=== PATIENT | male | born 1975 | race African-American/Black ===

== ENCOUNTER 2017-12-01 08:25 | Inpatient (IN) | payer OTHER ==
[2017-12-01 09:36] LABS: VENOUS PC02 38.4 mmHg (38-52); VENOUS PH 7.25 (7.32-7.42); VENOUS PO2 34.4 mmHg (28-48)
[2017-12-01 09:38] LABS: BASO % 0.8 % (0-2.0); EOS % 1.2 % (0-4.5); HEMATOCRIT 26.3 % (35.4-49); HEMOGLOBIN 8.1 GM/dL (11.7-16.9); LYMPH % 12.3 % (8-40); MCH 24.4 pg (25.7-33.7); MCHC 30.6 g/dl (32.0-35.9); MEAN CELL VOLUME 79.6 fl (80-96); MEAN PLT VOLUME 8.2 fl (7.5-11.1); MONO % 9.8 % (3.8-10.2); NEUT % 75.9 % (42.8-82.8); PLATELET COUNT 299 K/MM3 (134-434); RDW 21.7 % (11.9-15.9); WHITE BLOOD COUNT 9.1 K/mm3 (4.0-10.0)
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
[2017-12-01 10:00] LABS: INR 1.38 (0.82-1.09); PROTHROMBIN TIME (PATIENT) 15.6 SEC (9.98-11.88)
[2017-12-01 10:03] LABS: ACTIVATED PTT 32.6 SECONDS (26.9-34.4)
[2017-12-01 10:05] LABS: ADD RBC MORPHOLOGY YES
[2017-12-01] MEDS ORDERED: ONDANSETRON 4 MG/2 ML VIAL IVPUSH ONE (10:53)
[2017-12-01] MEDS ORDERED: ONDANSETRON 4 MG/2 ML VIAL ONE (11:06)
[2017-12-01] MEDS ORDERED: PIPERACILLIN/TAZOB 3.375 GM 50 ML IVPB ONE (11:17)
[2017-12-01] MEDS ORDERED: VANCOMYCIN 1,250 MG in DEXTROSE 5%-WATER - 250 ML IVPB ONE (11:17)
[2017-12-01 11:56] LABS: ANISOCYTOSIS 3+
[2017-12-01] MEDS ORDERED: PIPERACILLIN/TAZOB 3.375 GM 3.375 GM/50 ML BAG IVPB ONE (12:02)
--- NOTE | 2017-12-01 12:22 | PDOC ---
Attending Attestation - HPI HPI: 12/01/17 12:29 The patient is a 42 year old male, with a significant past medical history of asthma, ESRD on dialysis, and hypertension, who presents to the emergency room for evaluation of progressively worsening shortness of breath and a pre syncopal episode prior to arrival. The patient reports shortness of breath for approx. 3 days with today being the worst. Patient reports last dialysis was 2 days ago on Wednesday. Patient denies chest pain or palpitations. Patient denies recent fever, chills, nausea or vomiting. Documentation prepared by Anish العلي, acting as medical affairs manager for Krishan Liu MD. <Anish العلي - Last Filed: 12/01/17 12:29> - Resident Resident Name: London Marquez - ED Attending Attestation I have performed the following: I have examined & evaluated the patient, The case was reviewed & discussed with the resident, I agree w/resident's findings & plan, Exceptions are as noted - Physicial Exam PE: 12/01/17 14:46 Patient seen and evaluated immediately upon arrival; this history of present illness is being recorded prior to transfer to the ICU Patient is somnolent, easily arousable, abusive to staff, uncooperative; patient is afebrile, hypotensive and mildly tachycardic; nc, atr + jvd + diffuse crackles b/l + 3 pitting edema b/l w chronic venous stasis dermatitis b/l LUE: av fistula with pulsatile flow and several large pseudoaneurisms RUE: old, non-functional av fistula with several pseudoaneurisms - Critical Care Time Total Critical Care Time: 55 Critical Care Statement: The care of this patient involved high complexity decision making to prevent further life threatening deterioration of the patient 's condition and/or to evaluate & treat vital organ system(s) failure or risk of failure. - Medical Decision Making 12/01/17 14:54 Patient is an ill-appearing 42-year-old male with history of end-stage renal disease on hemodialysis who presents to the ER with somnolence, hypotension, diffuse crackles, and extensive lower extremity edema. Patient was last dialyzed 2 days prior to arrival. Patient also is noted to be hypotensive on room air requiring supplemental O2 at 4 L via nasal cannula to maintain oxygen saturation of 98% on room air. Physical exam reveals diffuse crackles bilaterally, and extensive lower extremity edema. EKG reveals atrial tachycardia with Q waves in V1 through V3; as well as mild, less than [address] segment elevations in V1 through V3 which may represent a ventricular aneurysm, hyperacute T waves are also noted in the lateral leads. Chest x-ray reveals cardiomegaly, pulmonary venous congestion with peribronchial cuffing, left retrocardiac infiltrate and interstitial edema. Blood cultures been obtained. IV vancomycin and gentamicin of been administered. Patient's potassium is noted to be 6.3. Dr. shaniqua rico of nephrology has been consulted for emergent dialysis. Patient will be admitted to the ICU further management and dialysis. On further questioning, patient reported that he had taken several tablets of hydralazine and labetalol shortly prior to arrival which may be responsible for patient's hypotension. Will defer pressor therapy at this time. Awaiting transfer to the ICU. <Krishan Liu - Last Filed: 12/01/17 15:00>
[2017-12-01 12:48] LABS: ALBUMIN 3.1 g/dl (3.4-5.0); ANION GAP 17 (8-16); BILIRUBIN,TOTAL 0.8 mg/dL (0.2-1.0); BLOOD UREA NITROGEN 81 mg/dL (7-18); CALCIUM 7.9 mg/dL (8.5-10.1); CHLORIDE 94 mmol/L (98-107); CO2 19 mmol/L (21-32); GLUCOSE,RANDOM 176 mg/dL (74-106); SGPT/ALT 31 U/L (12-78); SODIUM 130 mmol/L (136-145); TOT PROT 6.8 g/dl (6.4-8.2)
--- NOTE | 2017-12-01 13:15 | EKG ---
Test Reason : Blood Pressure : / mmHG Vent. 

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
[2017-12-01 13:31] LABS: ALK PHOS 311 U/L (45-117); SGOT/AST 20 U/L (15-37)
[2017-12-01 13:33] LABS: CREATININE 8.5 mg/dL (0.7-1.3); POTASSIUM 6.3 mmol/L (3.5-5.1)
--- NOTE | 2017-12-01 14:10 | HP ---
CHIEF COMPLAINT: shortness of breath, pre-syncope PCP: none HISTORY OF PRESENT ILLNESS: This is a 42 year old male with PMHx of HTN, ESRD (on HD, non-compliant), asthma , who presented to the ED with shortness of breath and pre-presyncope. The patient reports that he has had shortness of breath for several days now. He states it worsened today on his way to dialysis. His family reported that he was trying to get up today and fell back in his bed but did not lose consciousness. He denies any chest pain. His last HD was at [facility]. ER course was notable for: (1) temp 97.4, pulse 109, BP 70/46, resp 17, O2 93 on 2L nc (2) Hgb 8.1 hct 26.3 (3) Na 130, K 6.3, Cr 8.5 (4) Chest x-ray with dense, mass like opacity in the left lower lung, no pleural effusion or pneumothorax seen, vascular congestive changes with perironchial cuffing, cardiomegaly Recent Travel: denies PAST MEDICAL HISTORY: as above PAST SURGICAL HISTORY: denies Social History: Smoking: denies Alcohol: denies Drugs: denies Family History: Allergies morphine Allergy (Intermediate, Verified 12/01/17 08:46) HOME MEDICATIONS: Home Medications Medication Instructions Recorded Minoxidil [Loniten -] 10 mg PO DAILY 01/28/16 Oxycodone HCl/Acetaminophen 1 tab PO BID PRN #10 tablet 01/28/16 [Percocet 5-325 mg Tablet -] Sertraline HCl [Zoloft] 50 mg PO DAILY 01/28/16 Calcium Acetate [Phoslo -] 667 mg PO TIDCM 06/30/16 Sevelamer HCl [Renagel] 800 mg PO TID 06/30/16 Amlodipine Besylate [Norvasc -] 10 mg PO DAILY 08/16/16 Gabapentin 100 mg PO TID 08/16/16 Carvedilol [Coreg -] 12.5 mg PO BID #60 tablet 10/13/17 REVIEW OF SYSTEMS CONSTITUTIONAL: Absent: fever, chills, diaphoresis, generalized weakness, malaise, loss of appetite, weight change HEENT: Absent: rhinorrhea, nasal congestion, throat pain, throat swelling, difficulty swallowing, mouth swelling, ear pain, eye pain, visual changes CARDIOVASCULAR: Near syncope this morning. B/l lower extremity edema. Absent: chest pain, syncope, palpitations, irregular heart rate RESPIRATORY: Shortness of breath Absent: cough, orthopnea, wheezing, stridor, hemoptysis GASTROINTESTINAL: Absent: abdominal pain, abdominal distension, nausea, vomiting , diarrhea, constipation, melena, hematochezia GENITOURINARY: Absent: dysuria, frequency, urgency, hesitancy, hematuria, flank pain, genital pain MUSCULOSKELETAL: Absent: myalgia, arthralgia, joint swelling, back pain, neck pain SKIN: Absent: rash, itching, pallor HEMATOLOGIC/IMMUNOLOGIC: Absent: easy bleeding, easy bruising, lymphadenopathy, frequent infections ENDOCRINE:Absent: unexplained weight gain, unexplained weight loss, heat intolerance, cold intolerance NEUROLOGIC: Absent: headache, focal weakness or paresthesias, unsteady gait, seizure, mental status changes, bladder or bowel incontinence PSYCHIATRIC: Absent: anxiety, depression, suicidal or homicidal ideation, hallucinations. PHYSICAL EXAMINATION Vital Signs - 24 hr 12/01/17 12/01/17 12/01/17 08:25 08:47 09:25 Temperature 97.4 F L Pulse Rate 109 H Pulse Rate [ 94 H 93 H Left Radial] Respiratory 17 18 18 Rate Blood Pressure 70/46 Blood Pressure 80/54 104/76 [Right Arm] O2 Sat by Pulse 95 93 L 94 L Oximetry (%) 12/01/17 09:58 Temperature Pulse Rate Pulse Rate [ 93 H Left Radial] Respiratory 18 Rate Blood Pressure Blood Pressure 80/51 [Right Arm] O2 Sat by Pulse 94 L Oximetry (%) GENERAL: Awake, alert, and fully oriented, receiving HD HEAD: Normal with no signs of trauma. EYES: Refused EARS, NOSE, THROAT: Refused NECK: + JVD. LUNGS: Diffuse crackles bilaterally HEART: Regular rate and rhythm, normal S1 and S2 ABDOMEN: Soft, nontender, not distended, normoactive bowel sounds MUSCULOSKELETAL: Normal range of motion at all joints. No bony deformities or tenderness. No CVA tenderness. UPPER EXTREMITIES: LUE AV fistula currently being used for HD. RUE with old, non -functional AV fistula LOWER EXTREMITIES: B/l lower extremity 4+ pitting edema. B/l lower extremities with chronic venous stasis changes NEUROLOGICAL: Normal speech. Refused CN exam PSYCHIATRIC: Cooperative. Good eye contact. Appropriate mood and affect. Laboratory Results - last 24 hr 12/01/17 12/01/17 12/01/17 09:23 09:30 09:30 WBC 9.1 RBC 3.30 L Hgb 8.1 L Hct 26.3 L MCV 79.6 L MCH 24.4 L MCHC 30.6 L RDW 21.7 H D Plt Count 299 D MPV 8.2 Neutrophils % 75.9 Lymphocytes % 12.3 Monocytes % 9.8 Eosinophils % 1.2 Basophils % 0.8 Anisocytosis 3+ Microcytosis 2+ PT with INR 15.60 H INR 1.38 H PTT (Actin FS) 32.6 VBG pH 7.25 L POC VBG pCO2 38.4 POC VBG pO2 34.4 Mixed VBG HCO3 16.7 L Sodium Potassium Chloride Carbon Dioxide Anion Gap BUN Creatinine Creat Clearance w eGFR Random Glucose Calcium Total Bilirubin AST ALT Alkaline Phosphatase B-Natriuretic Peptide Total Protein Albumin 12/01/17 12/01/17 12/01/17 09:30 09:30 12:13 WBC RBC Hgb Hct MCV MCH MCHC RDW Plt Count MPV Neutrophils % Lymphocytes % Monocytes % Eosinophils % Basophils % Anisocytosis Microcytosis PT with INR INR PTT (Actin FS) VBG pH POC VBG pCO2 POC VBG pO2 Mixed VBG HCO3 Sodium Cancelled 130 L Potassium Cancelled 6.3 H* D Chloride Cancelled 94 L Carbon Dioxide Cancelled 19 L Anion Gap Cancelled 17 H BUN Cancelled 81 H D Creatinine Cancelled 8.5 H* D Creat Clearance w eGFR Cancelled 6.90 Random Glucose Cancelled 176 H Calcium Cancelled 7.9 L Total Bilirubin Cancelled 0.8 D AST Cancelled 20 ALT Cancelled 31 D Alkaline Phosphatase Cancelled 311 H D B-Natriuretic Peptide 10831.21 H Total Protein Cancelled 6.8 Albumin Cancelled 3.1 L Assessment: This is a 42 year old male with PMHx of HTN, ESRD (on HD, non- compliant), asthma, who presented to the ED with shortness of breath and pre- presyncope. Plan: 1) Shortness of breath, volume overload - Last HD on Wednesday - Elevated potassium - For urgent bedside HD today - Second HD session tomorrow - F/u ECHO - Appreciate nephrology consult 2) Hypotension - May be 2/2 taking extra antihypertensives today - Continue to monitor closely - Hold all antihypertensives - If no improvement, may require pressors 3) Hyperkalemia - Emergent HD today - EKG with atrial tachycardia - Per cardiology monitor on telemetry to see if arrhythmia resolves after HD treatment 4) Left lower lung mass like density - Was evident on previous chest x-ray 09/2017 - Given Vancomycin and Zosyn in the ED - No WBC, afebrile - F/u cultures - Will hold off on abx for now - F/u chest CT 5) HTN - Now with hypotension, hold antihypertensives 6) F/E/N: - Sodium controlled, renal diet - Monitor electrolytes 7) Prophylaxis: - Heparin 5,000u sq tid 8) Dispo: - Requires continued ICU care CODE STATUS: FULL CODE Visit type - Emergency Visit Emergency Visit: Yes ED Registration Date: 12/01/17 Care time: The patient presented to the Emergency Department on the above date and was hospitalized for further evaluation of their emergent condition. - New Patient This patient is new to me today: Yes Date on this admission: 12/01/17 - Critical Care Critical Care patient: Yes Total Critical Care Time (in minutes): 45 Critical Care Statement: The care of this patient involved high complexity decision making to prevent further life threatening deterioration of the patient 's condition and/or to evaluate & treat vital organ system(s) failure or risk of failure.
[2017-12-01 15:32] VITALS: BMI 35.5
--- NOTE | 2017-12-01 15:52 | CON.CARD ---
Consult Consult Specialty:: Cardiology Referred by:: brock Ornelas Reason for Consultation:: SOB/CHF - History of Present Illness Chief Complaint: SOB. near syncope History of Present Illness: 42 year old male with a pmhx of asthma, ESRD on HD, and htn presenting with sob and near syncope. Patient says today felt sob and weak which has been worsening last few days. Was trying to get up and fiance reports he fell back in bed due to weakness but did not lose consciousness. No chest pain. + chronic LE edema. Last dialysis 2 days ago but fiance reports he is not compliant. Denies any fever, chills, sweats. No palpitations. - History Source History Provided By: Patient, Family Member, Medical Record - Past Medical History Cardio/Vascular: Yes: HTN Pulmonary: Yes: Asthma Renal/: Yes: Renal Failure, Hemodialysis - Past Surgical History Past Surgical History: Yes: AV Fistula/Graft - Alcohol/Substance Use Hx Alcohol Use: No - Smoking History Smoking history: Current every day smoker Have you smoked in the past 12 months: Yes Aproximately how many cigarettes per day: 3 Home Medications - Allergies Allergies/Adverse Reactions: Allergies Allergy/AdvReac Type Severity Reaction Status Date / Time morphine Allergy Intermediate Verified 12/01/17 08:46 - Home Medications Home Medications: Ambulatory Orders Minoxidil [Loniten -] 10 mg PO DAILY 01/28/16 Oxycodone HCl/Acetaminophen [Percocet 5-325 mg Tablet -] 1 tab PO BID PRN #10 tablet 01/28/16 Sertraline HCl [Zoloft] 50 mg PO DAILY 01/28/16 Calcium Acetate [Phoslo -] 667 mg PO TIDCM 06/30/16 Sevelamer HCl [Renagel] 800 mg PO TID 06/30/16 Amlodipine Besylate [Norvasc -] 10 mg PO DAILY 08/16/16 Gabapentin 100 mg PO TID 08/16/16 Carvedilol [Coreg -] 12.5 mg PO BID #60 tablet 10/13/17 Vital Signs: Vital Signs Temperature 97.4 F L 12/01/17 15:08 Pulse Rate 101 H 12/01/17 15:08 Respiratory Rate 20 12/01/17 15:08 Blood Pressure 85/59 12/01/17 15:08 O2 Sat by Pulse Oximetry (%) 90 L 12/01/17 15:08 Constitutional: Yes: No Distress Respiratory: Yes: Rales Gastrointestinal: Yes: Soft Cardiovascular: Yes: Regular Rate and Rhythm JVD: Yes Carotid Bruit: No Heart Sounds: Yes: S1, S2 Murmur: Yes: Systolic Murmur (3/6 HSM apex) Edema: Yes - Other Data Labs, Other Data: CBC, BMP 12/01/17 09:30 12/01/17 12:13 INR, PTT INR 1.38 (0.82-1.09) H 12/01/17 09:30 Troponin, BNP 12/01/17 09:30 B-Natriuretic Peptide 20853.21 H Troponin, BNP 12/01/17 09:30 B-Natriuretic Peptide 27126.21 H Imaging - Results Chest X-ray: Report Reviewed EKG: Report Reviewed, Image Reviewed Assessment/Plan 42 year old male with a pmhx of asthma, ESRD on HD, and htn presenting with sob and near syncope. Patient says today felt sob and weak which has been worsening last few days. Was trying to get up and fiance reports he fell back in bed due to weakness but did not lose consciousness. No chest pain. + chronic LE edema. Last dialysis 2 days ago but fiance reports he is not compliant. Denies any fever, chills, sweats. No palpitations. 1) SOB/Volume overloaded Volume overloaded on physical exam and on chest xray with K 6.3. Planned for urgent dialysis -Would plan for echocardiogram to evaluate LVEF and valve anatomy -Patient with ekg: atrial tachycardia with 2:1 conduction HR 80s and poor R wave progression. No chest pain or palpitations. Will continue telemetry monitoring in ICU. Will see if arrhythmia resolves after treatment of electrolyte disorder. HR normal rate otherwise. R/o any infectious process. Will follow with you
[2017-12-01] MEDS: ALBUMIN HUMAN 25% 12.5 GM/50 ML VIAL IVPB SCH ×4 (16:15→18:22)
[2017-12-01] MEDS ORDERED: EPOETIN ALFA 3,000 UNIT/1 ML ML IVPUSH STA (18:14)
--- NOTE | 2017-12-01 20:28 | CONSULT ---
Consult Consult Specialty:: Pulm/ critical care Referred by:: Christi Goldstein - History of Present Illness Chief Complaint: shortness of breath, pre-syncope History of Present Illness: 42 year old man with h/o HTN, ESRD (non-compliant with HD), asthma who presented with SOB and pre-syncope. Per pts family he has had several days of worsening SOB and fatigue. His last HD was at [facility] on ? Wednesday/Wednesday. He complained of palpitations last night and took a few extra hydralizine and labetolol. He was supposed to go to HD today however he had pre- syncopal episode prompting family to bring him to ED. He denied fever, chills, chest pain, abdominal pain, nausea, vomiting or change in bowel habits. In the ED, T 97.4, HR 109, BP 70/46, RR 17, O2 93% on 2L NC. Labs were notable for K 6.3, Creat 8.5, Na 130. CXR notable for dense mass like opacity in left lower lung, vascular congestive changes. Impression was volume overload +/- PNA , though hypotension thought to be 2/2 excess antihypertensives. He was given vanco and zosyn x 1 in the ED and admitted to the ICU. He underwent bedside HD ( repeat chemistry pending) and underwent CT chest (report pending). Active Medications Calcium Acetate (Phoslo -) 667 mg PO TIDCM JUSTIN Gabapentin (Neurontin -) 100 mg PO TID JUSTIN Heparin Sodium (Porcine) (Heparin -) 5,000 unit SQ TID JUSTIN Sertraline HCl (Zoloft -) 50 mg PO DAILY JUSTIN Sevelamer Carbonate (Renvela -) 800 mg PO TIDCM JUSTIN - History Source History Provided By: Patient, Family Member, Medical Record - Past Medical History Cardio/Vascular: Yes: HTN Pulmonary: Yes: Asthma Renal/: Yes: Renal Failure, Hemodialysis - Past Surgical History Past Surgical History: Yes: AV Fistula/Graft - Alcohol/Substance Use Hx Alcohol Use: No - Smoking History Smoking history: Former smoker Have you smoked in the past 12 months: Yes Aproximately how many cigarettes per day: 4 - Social History Usual Living Arrangement: With Significant Other Home Medications - Allergies Allergies/Adverse Reactions: Allergies Allergy/AdvReac Type Severity Reaction Status Date / Time morphine Allergy Intermediate Verified 12/01/17 08:46 - Home Medications Home Medications: Ambulatory Orders Minoxidil [Loniten -] 10 mg PO DAILY 01/28/16 Oxycodone HCl/Acetaminophen [Percocet 5-325 mg Tablet -] 1 tab PO BID PRN #10 tablet 01/28/16 Sertraline HCl [Zoloft] 50 mg PO DAILY 01/28/16 Calcium Acetate [Phoslo -] 667 mg PO TIDCM 06/30/16 Sevelamer HCl [Renagel] 800 mg PO TID 06/30/16 Amlodipine Besylate [Norvasc -] 10 mg PO DAILY 08/16/16 Gabapentin 100 mg PO TID 08/16/16 Carvedilol [Coreg -] 12.5 mg PO BID #60 tablet 10/13/17 Review of Systems - Review of Systems Constitutional: reports: Weakness. denies: Chills, Fever Cardiovascular: reports: Palpitations, Shortness of Breath. denies: Chest Pain Respiratory: reports: Cough, SOB Gastrointestinal: denies: Abdominal Pain, Nausea Genitourinary: reports: No Symptoms Musculoskeletal: reports: Joint Pain Neurological: reports: Other (pre-syncope) Physical Exam Vital Signs: Vital Signs Temperature 98.7 F 12/01/17 15:40 Pulse Rate 108 H 12/01/17 19:30 Respiratory Rate 18 12/01/17 19:30 Blood Pressure 90/50 12/01/17 19:30 O2 Sat by Pulse Oximetry (%) 90 L 12/01/17 16:48 Eyes: Yes: WNL Cardiovascular: Yes: Tachycardia, S1, S2 Respiratory: Yes: CTA Bilaterally, Wheezes (mild wheeze) Gastrointestinal: Yes: Normal Bowel Sounds, Soft Extremities: Yes: Other (LUE fistula) Edema: Yes Edema: LLE: 2+, RLE: 2+ Peripheral Pulses WNL: Yes Wound/Incision: Yes: Other (b/l foot ulcers, wrapped) Labs: CBC, BMP 12/01/17 09:30 Imaging - Results Chest X-ray: Report Reviewed, Image Reviewed Cat Scan: Image Reviewed Assessment/Plan Assessment: 42 y/o man with HTN, ESRD (non-compliant with HD), asthma who presented to ED with shortness of breath and pre-syncope likely in the setting of volume overload and hypotension in setting of excess anti-hypertensives, differentials include pulmonic sepsis and PE. Renal: ESRD, presents with hyperkalemia and volume overload -s/p HD - continue TIW -f/u repeat chemistry Pulm: SOB likely in setting of volume overload though cannot r/o PNA - seems less likely given no leukocytosis or fevers - cannot r/o PE given pre-syncope, SOB and hypotension -O2 as needed -f/u CT chest official read -defer abx at this time - low threshold to re-dose if indicated -TTE - consider LE US CV: HTN at baseline presented with hypotension likely 2/2 excess antihypertensives -hemodynamic monitoring -hold antihypertensives -initiate pressors as needed -repeat EKG -TTE PPX: -SQ heparin -no indication for GI ppx DISPO: FULL CODE Jeannine Vences ACNP CCT: 35 mins
[2017-12-01] MEDS: HEPARIN NA (PORCINE) 5,000 UNITS/ML 1ML VIAL SQ SCH (21:46)
[2017-12-01] MEDS: SEVELAMER CARBONATE 800 MG TAB (FP) PO SCH (21:46)
[2017-12-01] MEDS: GABAPENTIN 100 MG CAPSULE (FP) PO SCH (21:47)
[2017-12-02 00:06] LABS: ANION GAP 12 (8-16); BLOOD UREA NITROGEN 32 mg/dL (7-18); CALCIUM 7.9 mg/dL (8.5-10.1); CHLORIDE 98 mmol/L (98-107); CO2 29 mmol/L (21-32); CREATININE 3.8 mg/dL (0.7-1.3); GLUCOSE,RANDOM 203 mg/dL (74-106); POTASSIUM 3.5 mmol/L (3.5-5.1); SODIUM 139 mmol/L (136-145)
[2017-12-02] MEDS ORDERED: oxyCODONE HCL 5 MG TABLET PO PRN ×2 (00:34→14:21)
[2017-12-02] MEDS: GABAPENTIN 100 MG CAPSULE (FP) PO SCH ×2 (05:48→14:04)
[2017-12-02] MEDS: HEPARIN NA (PORCINE) 5,000 UNITS/ML 1ML VIAL SQ SCH ×2 (05:48→14:04)
[2017-12-02 06:25] LABS: HEMATOCRIT 22.7 % (35.4-49); MCH 24.3 pg (25.7-33.7); MCHC 30.8 g/dl (32.0-35.9); MEAN CELL VOLUME 78.9 fl (80-96); PLATELET COUNT 279 K/MM3 (134-434); RBC 2.87 M/mm3 (4.00-5.60); RDW 21.1 % (11.9-15.9); WHITE BLOOD COUNT 7.2 K/mm3 (4.0-10.0)
--- NOTE | 2017-12-02 07:28 | PN ---
Progress Note, Physician Chief Complaint: SOB improving No chest pain or palpitations No dizziness or lightheadedness History of Present Illness: 42 year old male with a pmhx of asthma, ESRD on HD, and htn presenting with sob and near syncope. Patient says today felt sob and weak which has been worsening last few days. Was trying to get up and fiance reports he fell back in bed due to weakness but did not lose consciousness. No chest pain. + chronic LE edema. Last dialysis 2 days ago but fiance reports he is not compliant. Denies any fever, chills, sweats. No palpitations. - Current Medication List Current Medications: Active Medications Calcium Acetate (Phoslo -) 667 mg PO TIDCM [facility] Gabapentin (Neurontin -) 100 mg PO TID [facility] Last Admin: 12/02/17 05:48 Dose: 100 mg Heparin Sodium (Porcine) (Heparin -) 5,000 unit SQ TID [facility] Last Admin: 12/02/17 05:48 Dose: 5,000 unit Oxycodone HCl (Roxicodone -) 5 mg PO Q6H PRN PRN Reason: PAIN Sertraline HCl (Zoloft -) 50 mg PO DAILY [facility] Sevelamer Carbonate (Renvela -) 800 mg PO TIDCM [facility] Last Admin: 12/01/17 21:46 Dose: 800 mg - Objective Vital Signs: Vital Signs Temperature 98.2 F 12/02/17 06:00 Pulse Rate 114 H 12/02/17 06:00 Respiratory Rate 18 12/02/17 06:00 Blood Pressure 93/54 12/02/17 06:00 O2 Sat by Pulse Oximetry (%) 90 L 12/01/17 22:00 Constitutional: Yes: No Distress Neck: Yes: Supple Cardiovascular: Yes: Tachycardia, Murmur (2/6 HSM apex), S1, S2 Respiratory: Yes: Rales Gastrointestinal: Yes: Soft Edema: Yes Edema: LLE: 1+, RLE: 1+ Labs: CBC, BMP 12/02/17 05:10 12/01/17 19:30 INR, PTT INR 1.38 (0.82-1.09) H 12/01/17 09:30 Problem List - Problems (1) Fluid overload Code(s): E87.70 - FLUID OVERLOAD, UNSPECIFIED Qualifiers: Hypervolemia type: unspecified Qualified Code(s): E87.70 - Fluid overload, unspecified Assessment/Plan 42 year old male with a pmhx of asthma, ESRD on HD, and htn presenting with sob and near syncope. Patient says today felt sob and weak which has been worsening last few days. Was trying to get up and fiance reports he fell back in bed due to weakness but did not lose consciousness. No chest pain. + chronic LE edema. Last dialysis 2 days ago but fiance reports he is not compliant. Denies any fever, chills, sweats. No palpitations. 1) SOB/Volume overloaded -Volume status improving after dialysis but still overloaded. F/u with renal regarding plan for dialysis. K improved -Would plan for echocardiogram to evaluate LVEF and valve anatomy and pulmonary htn. -Patient with ekg: atrial tachycardia vs. atrial flutter with 2:1 conduction. HR in 80s on admission. On tele up to 110s. No chest pain or palpitations. Will continue telemetry monitoring in ICU. Consider blood transfusion during dialysis. BP meds on hold. If bp improves/elevates senior living would start on AV lexus blocking agent. HR 100-110 unlikely to be causing hypotension. Will monitor arrhythmia and hemodynamics for any need for further cardiac intervention. R/o any infectious process. Will follow with you
--- NOTE | 2017-12-02 08:55 | PN ---
Physical Exam: SUBJECTIVE: Patient seen and examined in ICU. Demanding a regular diet. "I am a grown man. No one tells me what to eat." OBJECTIVE: Vital Signs Period Temp Pulse Resp BP Sys/Mcintyre Pulse Ox Last 24 Hr 97.4 F-98.7 F 93-116 16-20 78-111/40-83 90-94 GENERAL: The patient is awake, alert, and fully oriented, in no acute distress. NECK: Trachea midline, full range of motion, supple. LUNGS: Diffuse wheezes, coarse crackles to left base, no accessory muscle use. HEART: Tele with ST. S1, S2 without murmur, rub or gallop. ABDOMEN: Soft, nontender, nondistended, normoactive bowel sounds, no guarding, no rebound, no hepatosplenomegaly, no masses. EXTREMITIES: 2+ pulses, warm, well-perfused, 4+ edema to bilateral LE. No cords present. 2+DP pulses. Chronic venous stasis changes to BLE. LUE A-V fistula (+) bruit. (+) thrill. NEUROLOGICAL: Cranial nerves II through XII grossly intact. Normal speech, gait not observed. PSYCH: Normal mood, normal affect. Laboratory Results - last 24 hr 12/01/17 12/01/17 12/01/17 09:23 09:30 09:30 WBC 9.1 RBC 3.30 L Hgb 8.1 L Hct 26.3 L MCV 79.6 L MCH 24.4 L MCHC 30.6 L RDW 21.7 H D Plt Count 299 D MPV 8.2 Neutrophils % 75.9 Lymphocytes % 12.3 Monocytes % 9.8 Eosinophils % 1.2 Basophils % 0.8 Anisocytosis 3+ Microcytosis 2+ PT with INR 15.60 H INR 1.38 H PTT (Actin FS) 32.6 VBG pH 7.25 L POC VBG pCO2 38.4 POC VBG pO2 34.4 Mixed VBG HCO3 16.7 L Sodium Potassium Chloride Carbon Dioxide Anion Gap BUN Creatinine Creat Clearance w eGFR Random Glucose Calcium Total Bilirubin AST ALT Alkaline Phosphatase B-Natriuretic Peptide Total Protein Albumin 12/01/17 12/01/17 12/01/17 09:30 09:30 12:13 WBC RBC Hgb Hct MCV MCH MCHC RDW Plt Count MPV Neutrophils % Lymphocytes % Monocytes % Eosinophils % Basophils % Anisocytosis Microcytosis PT with INR INR PTT (Actin FS) VBG pH POC VBG pCO2 POC VBG pO2 Mixed VBG HCO3 Sodium Cancelled 130 L Potassium Cancelled 6.3 H* D Chloride Cancelled 94 L Carbon Dioxide Cancelled 19 L Anion Gap Cancelled 17 H BUN Cancelled 81 H D Creatinine Cancelled 8.5 H* D Creat Clearance w eGFR Cancelled 6.90 Random Glucose Cancelled 176 H Calcium Cancelled 7.9 L Total Bilirubin Cancelled 0.8 D AST Cancelled 20 ALT Cancelled 31 D Alkaline Phosphatase Cancelled 311 H D B-Natriuretic Peptide 72256.21 H Total Protein Cancelled 6.8 Albumin Cancelled 3.1 L 12/01/17 12/02/17 19:30 05:10 WBC 7.2 RBC 2.87 L Hgb 7.0 L D Hct 22.7 L MCV 78.9 L MCH 24.3 L MCHC 30.8 L RDW 21.1 H Plt Count 279 MPV 8.0 Neutrophils % Lymphocytes % Monocytes % Eosinophils % Basophils % Anisocytosis Microcytosis PT with INR INR PTT (Actin FS) VBG pH POC VBG pCO2 POC VBG pO2 Mixed VBG HCO3 Sodium 139 Potassium 3.5 D Chloride 98 Carbon Dioxide 29 D Anion Gap 12 BUN 32 H D Creatinine 3.8 H D Creat Clearance w eGFR Random Glucose 203 H Calcium 7.9 L Total Bilirubin AST ALT Alkaline Phosphatase B-Natriuretic Peptide Total Protein Albumin Active Medications Generic Name Dose Route Start Last Admin Trade Name Freq PRN Reason Stop Dose Admin Calcium Acetate 667 mg 12/02/17 08:00 Phoslo - PO TIDCM JUSTIN Gabapentin 100 mg 12/01/17 22:00 12/02/17 05:48 Neurontin - PO 100 mg TID JUSTIN Administration Heparin Sodium (Porcine) 5,000 unit 12/01/17 22:00 12/02/17 05:48 Heparin - SQ 5,000 unit TID JUSTIN Administration Oxycodone HCl 5 mg 12/02/17 00:34 Roxicodone - PO Q6H PRN PAIN Sertraline HCl 50 mg 12/02/17 10:00 Zoloft - PO DAILY JUSTIN Sevelamer Carbonate 800 mg 12/01/17 20:00 12/01/17 21:46 Renvela - PO 800 mg TIDCM JUSTIN Administration CT/CHEST CT WITHOUT CONTRAST Chest CT (without contrast) Clinical information: evaluate left lung base density Multiplanar imaging was performed. Intravenous contrast was not administered. In comparison to a prior CT study of 01/06/2007 note is made of interval development of approximately 10 x 8 x 3 cm heavily calcified structure within the serratus musculature along the posterolateral aspect of the mid to lower chest. This finding corresponds to the area of increased density described on recently performed radiography. Interval development of diffuse bilateral upper and lower lung ponce ground glass interstitial opacity is seen. There is somewhat preferential involvement of the upper lung ponce. Development of small right middle lobe and left lower lobe focal opacities is seen probably representing atelectasis versus small infiltrates. There has been interval resolution of more bilateral upper lobe infiltrates/nodules. No pleural effusion is seen. Increased multichamber cardiomegaly is visualized. Interval development of extensive mitral annular calcification is noted. Less prominent calcification is seen at the level of the aortic valve. Increased dilatation of the main pulmonary artery is noted with a current diameter of 3.5 cm consistent with evidence of increased pulmonary arterial pressure. Development of dilatation of the partially imaged inferior vena cava and hepatic veins is seen secondary to cardiac dysfunction. The partially imaged upper abdomen demonstrates bilateral flank subcutaneous edema. The partially imaged kidneys demonstrate interval development of marked bilateral atrophy. No pericardial effusion is noted. There is no aortic aneurysm. Development of several punctate preaortic mediastinal lymph nodes is seen probably on a hyperplastic basis. As on the prior study several stable mildly prominent bilateral axillary lymph nodes are noted. Bilateral subcentimeter upper lung field subpleural blebs. Development of diffuse osteosclerosis is noted suggestive of renal osteodystrophy. IMPRESSION: in comparison to a prior CT study of 01/06/2007 interval development of a 10 x 8 x 3 cm hyperdense focus is seen within the extrathoracic muscular along the left posterolateral aspect of the mid chest suggestive of heterotopic ossification. No obvious associated mass lesion is identified. Correlate with follow-up CT to document stability. This finding corresponds to the area of increased density described on recent performed radiography. Interval development of diffuse bilateral upper and lower lung field ground glass interstitial thickening is seen which may be on the basis of vascular congestion versus interstitial pneumonitis. Increased global cardiomegaly is noted. There is increased dilatation of the central pulmonary arterial vasculature consistent with pulmonary hypertension. Marked bilateral renal atrophy is seen. Bilateral flank subcutaneous edema at the level of the partially imaged upper abdomen. Interval development of small right middle lobe and left lower lobe opacities are noted probably on the basis of acute/chronic atelectasis (versus representing small infiltrates). Small pulmonary nodules are less likely. Correlate clinically and with 3 month follow-up CT to document stability/ resolution. Renal osteodystrophy. Reported By: Seferino Padron MD 12/01/17 [id number] ASSESSMENT/PLAN: A: 42 year old male with PMHx of HTN, ESRD (on HD, non-compliant), asthma, who presented to the ED with shortness of breath and pre-syncope. P: Shortness of breath, volume overload - Emergent HD 12/01 - Potassium 3.5 s/p HD - ?HD session today- will transfuse if he receives HD today - F/u ECHO - duplex dopplers of BLE - Appreciate nephrology consult Hypotension - ?took extra HTN medds prior to admission - Continue to monitor closely - Hold all antihypertensives - If no improvement, may require pressors Hyperkalemia - Resolved - Emergent HD 12/01 - EKG with atrial tachycardia - Per cardiology monitor on telemetry to see if arrhythmia resolves after HD treatment Anemia - Hgb 8.1->7.0 s/p HD - No hematemesis - denies rectal bleeding - refused rectal exam - would transfuse if HD today given diffuse wheezes Left lower lung mass like density - Was evident on previous chest x-ray 09/2017 - Given Vancomycin and Zosyn in the ED - No WBC, afebrile - F/u cultures - Continue to hold abx for now HTN - Now with hypotension, hold antihypertensives F/E/N - Sodium controlled, renal diet - trend electrolytes PPX - sqh Dispo- Requires continued ICU care Visit type - Emergency Visit Emergency Visit: Yes ED Registration Date: 12/01/17 Care time: The patient presented to the Emergency Department on the above date and was hospitalized for further evaluation of their emergent condition. - New Patient This patient is new to me today: Yes Date on this admission: 12/02/17 - Critical Care Critical Care patient: Yes Total Critical Care Time (in minutes): 34 Critical Care Statement: The care of this patient involved high complexity decision making to prevent further life threatening deterioration of the patient 's condition and/or to evaluate & treat vital organ system(s) failure or risk of failure.
[2017-12-02] MEDS ORDERED: SERTRALINE HCL 50 MG TABLET (FP) PO SCH (10:00)
[2017-12-02] MEDS: CALCIUM ACETATE 667 MG CAPSULE (FP) PO SCH ×3 (10:17→17:41)
[2017-12-02] MEDS: SEVELAMER CARBONATE 800 MG TAB (FP) PO SCH ×3 (10:18→17:41)
[2017-12-02 11:07] LABS: ANION GAP 11 (8-16); BLOOD UREA NITROGEN 46 mg/dL (7-18); CHLORIDE 98 mmol/L (98-107); CO2 27 mmol/L (21-32); CREATININE 6.2 mg/dL (0.7-1.3); GLUCOSE,RANDOM 185 mg/dL (74-106); MAGNESIUM 2.2 mg/dL (1.8-2.4); PHOSPHOROUS 5.4 mg/dL (2.5-4.9); POTASSIUM 4.3 mmol/L (3.5-5.1); SGOT/AST 14 U/L (15-37); SGPT/ALT 27 U/L (12-78); SODIUM 136 mmol/L (136-145)
[2017-12-02 11:09] LABS: ALK PHOS 273 U/L (45-117); BILIRUBIN,TOTAL 0.6 mg/dL (0.2-1.0); TOT PROT 6.5 g/dl (6.4-8.2)
--- NOTE | 2017-12-02 11:38 | PN ---
Physical Exam: SUBJECTIVE: Patient seen and examined in ICU Patient underwent hemodialysis yesterday and tolerated well. Shortness of breath is improving. Patient denies any complaints this morning. OBJECTIVE: Vital Signs Period Temp Pulse Resp BP Sys/Mcintyre Pulse Ox Last 24 Hr 97.4 F-98.7 F 97-117 16-20 78-111/40-83 90-98 GENERAL: The patient is awake, alert, and fully oriented, in no acute distress. HEAD: Normal with no signs of trauma. EYES: Extraocular movements intact, sclera anicteric, conjunctiva clear. No ptosis. ENT: Oropharynx clear without exudates, moist mucous membranes. NECK: Trachea midline, full range of motion, supple. LUNGS: Breath sounds equal, +Rhonchi at biltaeral bases, no accessory muscle use HEART: Tachycardic, S1, S2 without murmur, rub or gallop. ABDOMEN: Soft, nontender, nondistended, normoactive bowel sounds, no guarding, no rebound, no hepatosplenomegaly, no masses. EXTREMITIES: 2+ pulses, warm, well-perfused, no edema. NEUROLOGICAL: Cranial nerves II through XII grossly intact. Normal speech, gait not observed. PSYCH: Normal mood, normal affect. SKIN: Warm, dry, normal turgor, no rashes or lesions noted Laboratory Results - last 24 hr 12/01/17 12/01/17 12/01/17 09:30 12:13 19:30 WBC RBC Hgb Hct MCV MCH MCHC RDW Plt Count MPV Anisocytosis 3+ Microcytosis 2+ Sodium 130 L 139 Potassium 6.3 H* D 3.5 D Chloride 94 L 98 Carbon Dioxide 19 L 29 D Anion Gap 17 H 12 BUN 81 H D 32 H D Creatinine 8.5 H* D 3.8 H D Creat Clearance w eGFR 6.90 Random Glucose 176 H 203 H Calcium 7.9 L 7.9 L Total Bilirubin 0.8 D AST 20 ALT 31 D Alkaline Phosphatase 311 H D Total Protein 6.8 Albumin 3.1 L Blood Type Antibody Screen Crossmatch 12/02/17 12/02/17 05:10 10:10 WBC 7.2 RBC 2.87 L Hgb 7.0 L D Hct 22.7 L MCV 78.9 L MCH 24.3 L MCHC 30.8 L RDW 21.1 H Plt Count 279 MPV 8.0 Anisocytosis Microcytosis Sodium Potassium Chloride Carbon Dioxide Anion Gap BUN Creatinine Creat Clearance w eGFR Random Glucose Calcium Total Bilirubin AST ALT Alkaline Phosphatase Total Protein Albumin Blood Type A POSITIVE Antibody Screen Negative Crossmatch See Detail Active Medications Generic Name Dose Route Start Last Admin Trade Name Freq PRN Reason Stop Dose Admin Calcium Acetate 667 mg 12/02/17 08:00 12/02/17 10:17 Phoslo - PO 667 mg TIDCM [facility] Administration Gabapentin 100 mg 12/01/17 22:00 12/02/17 05:48 Neurontin - PO 100 mg TID [facility] Administration Heparin Sodium (Porcine) 5,000 unit 12/01/17 22:00 12/02/17 05:48 Heparin - SQ 5,000 unit TID [facility] Administration Oxycodone HCl 5 mg 12/02/17 00:34 Roxicodone - PO Q6H PRN PAIN Sertraline HCl 50 mg 12/02/17 10:00 12/02/17 10:18 Zoloft - PO 50 mg DAILY [facility] Administration Sevelamer Carbonate 800 mg 12/01/17 20:00 12/02/17 10:18 Renvela - PO 800 mg TIDCM [facility] Administration ASSESSMENT/PLAN: 42 y/o man with HTN, ESRD (non-compliant with HD), asthma who presented to ED with shortness of breath and pre-syncope likely in the setting of volume overload and hypotension in setting of excess anti-hypertensives Renal: ESRD, presented with hyperkalemia and volume overload -Patient tolerated HD yesterday. Will f/u with renal if patient will go to HD today. Patient's hgb dropped to 7, will give 1 unit prbc with dialysis -Monitor BMP's -Monitor H/H Pulmonary: SOB 2/2 to volume overload though cannot r/o PNA -O2 as needed -No Leukocytosis, no fevers -Repeat CXR later today CV: HTN at baseline presented with hypotension likely 2/2 excess antihypertensives -hemodynamic monitoring -hold antihypertensives -initiate pressors as needed PPX: -SQ heparin -no indication for GI ppx DISPO: Transfer to med/surg Visit type - Emergency Visit Emergency Visit: Yes ED Registration Date: 12/01/17 Care time: The patient presented to the Emergency Department on the above date and was hospitalized for further evaluation of their emergent condition. - New Patient This patient is new to me today: Yes Date on this admission: 12/02/17 - Critical Care Critical Care patient: Yes Total Critical Care Time (in minutes): 35 Critical Care Statement: The care of this patient involved high complexity decision making to prevent further life threatening deterioration of the patient 's condition and/or to evaluate & treat vital organ system(s) failure or risk of failure.
--- NOTE | 2017-12-02 11:58 | PN ---
Teaching Attending Note Name of Resident: Dejuan Sanchez ATTENDING PHYSICIAN STATEMENT I saw and evaluated the patient. I reviewed the resident's note and discussed the case with the resident. I agree with the resident's findings and plan as documented. SUBJECTIVE: Pt seen and examined in the ICU. Tolerated HD yesterday. Some shortness of breath but improving with HD. OBJECTIVE: Last Vital Signs Temp Pulse Resp BP Pulse Ox 98.5 F 114 H 18 85/45 98 12/02/17 10:00 12/02/17 10:00 12/02/17 10:00 12/02/17 10:00 12/02/17 09:00 Intake & Output 11/29/17 11/30/17 12/01/17 12/02/17 23:59 23:59 23:59 23:59 Intake Total 400 Balance 400 Weight 85.275 kg 83.716 kg Gen: NAD at rest Heart: tachycardic, regular Lung: basilar rhonchi, rales Abd: soft, nontender Ext: no edema CBC, BMP 12/02/17 05:10 12/02/17 10:10 Active Medications Calcium Acetate (Phoslo -) 667 mg PO TIDCM [facility] Last Admin: 12/02/17 10:17 Dose: 667 mg Gabapentin (Neurontin -) 100 mg PO TID [facility] Last Admin: 12/02/17 05:48 Dose: 100 mg Heparin Sodium (Porcine) (Heparin -) 5,000 unit SQ TID [facility] Last Admin: 12/02/17 05:48 Dose: 5,000 unit Oxycodone HCl (Roxicodone -) 5 mg PO Q6H PRN PRN Reason: PAIN Sertraline HCl (Zoloft -) 50 mg PO DAILY [facility] Last Admin: 12/02/17 10:18 Dose: 50 mg Sevelamer Carbonate (Renvela -) 800 mg PO TIDCM [facility] Last Admin: 12/02/17 10:18 Dose: 800 mg ASSESSMENT AND PLAN: Volume Overload ESRD on HD Hyperkalemia improved after HD Noncompliance HTN Asthma - HD per renal with ultrafiltration - transfuse with HD - monitor lytes - monitor CXR with HD - monitor H/H - DVT prophylaxis - can monitor on floor
[2017-12-02] MEDS ORDERED: EPOETIN ALFA 2,000 UNIT/1 ML VIAL IVPUSH ONE ×2 (12:53→17:00)
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
[2017-12-02] MEDS ORDERED: EPOETIN ALFA 3,000 UNIT/1 ML ML IVPUSH ONE (17:00)
[2017-12-03] MEDS: GABAPENTIN 100 MG CAPSULE (FP) PO SCH ×4 (05:08→21:43)
[2017-12-03] MEDS: HEPARIN NA (PORCINE) 5,000 UNITS/ML 1ML VIAL SQ SCH ×3 (05:08→14:09)
[2017-12-03 06:06] LABS: HBSAG SCREEN Negative (Negative); HEP B CORE AB, TOT Negative (Negative)
[2017-12-03 07:00] LABS: HEMATOCRIT 29.3 % (35.4-49); HEMOGLOBIN 9.2 GM/dL (11.7-16.9); MCH 25.6 pg (25.7-33.7); MCHC 31.4 g/dl (32.0-35.9); MEAN CELL VOLUME 81.7 fl (80-96); MEAN PLT VOLUME 8.1 fl (7.5-11.1); PLATELET COUNT 314 K/MM3 (134-434); RBC 3.58 M/mm3 (4.00-5.60); RDW 21.6 % (11.9-15.9); WHITE BLOOD COUNT 8.4 K/mm3 (4.0-10.0)
[2017-12-03 07:05] LABS: CHLORIDE 95 mmol/L (98-107); POTASSIUM 4.6 mmol/L (3.5-5.1); SODIUM 137 mmol/L (136-145)
[2017-12-03 07:15] LABS: ALBUMIN 3.1 g/dl (3.4-5.0); ALK PHOS 288 U/L (45-117); ANION GAP 14 (8-16); BILIRUBIN,TOTAL 0.9 mg/dL (0.2-1.0); BLOOD UREA NITROGEN 31 mg/dL (7-18); CALCIUM 8.5 mg/dL (8.5-10.1); CO2 28 mmol/L (21-32); CREATININE 5.2 mg/dL (0.7-1.3); GLUCOSE,RANDOM 120 mg/dL (74-106); MAGNESIUM 2.1 mg/dL (1.8-2.4); PHOSPHOROUS 4.7 mg/dL (2.5-4.9); SGOT/AST 16 U/L (15-37); SGPT/ALT 25 U/L (12-78)
[2017-12-03] MEDS: CALCIUM ACETATE 667 MG CAPSULE (FP) PO SCH ×3 (08:15→17:09)
[2017-12-03] MEDS: SEVELAMER CARBONATE 800 MG TAB (FP) PO SCH ×3 (08:15→17:08)
[2017-12-03] MEDS: SERTRALINE HCL 50 MG TABLET (FP) PO SCH (09:57)
--- NOTE | 2017-12-03 10:58 | PN ---
Teaching Attending Note Name of Resident: Dejuan Sanchez ATTENDING PHYSICIAN STATEMENT I saw and evaluated the patient. I reviewed the resident's note and discussed the case with the resident. I agree with the resident's findings and plan as documented. SUBJECTIVE: Patient seen and examined in the ICU. Breathing feels slightly better today. Not adherent to diet, fluid restriction. No CP. CXR: Bilateral congestive changes OBJECTIVE: Intake & Output 11/30/17 12/01/17 12/02/17 12/03/17 23:59 23:59 23:59 23:59 Intake Total 1200 900 Balance 1200 900 Weight 188 lb 184 lb 9 oz Last Vital Signs Temp Pulse Resp BP Pulse Ox 99.4 F 122 H 22 139/83 98 12/03/17 08:25 12/03/17 10:47 12/03/17 10:47 12/03/17 10:47 12/02/17 09:00 Active Medications Calcium Acetate (Phoslo -) 667 mg PO TIDCM [facility] Last Admin: 12/03/17 08:15 Dose: 667 mg Diphenhydramine HCl (Benadryl Injection -) 25 mg IVPUSH ONCE ONE Stop: 12/03/17 11:01 Gabapentin (Neurontin -) 100 mg PO TID [facility] Last Admin: 12/03/17 05:34 Dose: 100 mg Heparin Sodium (Porcine) (Heparin -) 5,000 unit SQ TID [facility] Last Admin: 12/03/17 05:35 Dose: 5,000 unit Oxycodone HCl (Roxicodone -) 5 mg PO Q6H PRN PRN Reason: PAIN Sertraline HCl (Zoloft -) 50 mg PO DAILY [facility] Last Admin: 12/03/17 09:57 Dose: 50 mg Sevelamer Carbonate (Renvela -) 800 mg PO TIDCM [facility] Last Admin: 12/03/17 08:15 Dose: 800 mg Gen: NAD at rest Heart: tachycardic, regular Lung: basilar rhonchi, rales Abd: soft, nontender Ext: no edema Laboratory Results - last 24 hr 12/01/17 12/01/17 12/02/17 19:30 19:30 10:10 WBC RBC Hgb Hct MCV MCH MCHC RDW Plt Count MPV Sodium Potassium Chloride Carbon Dioxide Anion Gap BUN Creatinine Creat Clearance w eGFR Random Glucose Calcium Phosphorus Magnesium Total Bilirubin AST ALT Alkaline Phosphatase Total Protein Albumin Hepatitis A Ab Total Negative Hep Bs Antigen Negative Hep Bs Antibody Non reactive Hep B Core Total Ab Negative Hepatitis C Antibody Cancelled <0.1 Blood Type A POSITIVE Antibody Screen Negative Crossmatch See Detail 12/02/17 12/03/17 12/03/17 10:10 06:10 06:10 WBC 8.4 RBC 3.58 L D Hgb 9.2 L D Hct 29.3 L D MCV 81.7 MCH 25.6 L MCHC 31.4 L RDW 21.6 H Plt Count 314 MPV 8.1 Sodium 136 137 Potassium 4.3 D 4.6 Chloride 98 95 L Carbon Dioxide 27 28 Anion Gap 11 14 BUN 46 H D 31 H D Creatinine 6.2 H D 5.2 H Creat Clearance w eGFR 9.93 12.17 Random Glucose 185 H 120 H D Calcium 8.0 L 8.5 Phosphorus 5.4 H D 4.7 Magnesium 2.2 2.1 Total Bilirubin 0.6 D 0.9 D AST 14 L D 16 ALT 27 25 Alkaline Phosphatase 273 H 288 H Total Protein 6.5 7.0 Albumin 3.0 L 3.1 L Hepatitis A Ab Total Hep Bs Antigen Hep Bs Antibody Hep B Core Total Ab Hepatitis C Antibody Blood Type Antibody Screen Crossmatch ASSESSMENT AND PLAN: Volume Overload ESRD on HD Hyperkalemia improved after HD Noncompliance HTN Asthma - HD per renal with volume removal - Normal transfusion thresholds - monitor lytes - monitor H/H - DVT prophylaxis - Floor - Daily weight - Dietary compliance discussed Dr Mcmillan Critical care time spent in reviewing chart, evaluating patient and formulating plan - 36 minutes.
--- NOTE | 2017-12-03 11:03 | PN ---
Physical Exam: SUBJECTIVE: Patient seen and examined Patient underwent hemodialysis yesterday and tolerated well. Shortness of breath is improving. Patient denies any complaints this morning other than he is worried about his heart. OBJECTIVE: Vital Signs Period Temp Pulse Resp BP Sys/Mcintyre Pulse Ox Last 24 Hr 98.4 F-99.4 F 82-127 16-22 85-139/45-83 GENERAL: The patient is awake, alert, and fully oriented, in no acute distress. HEAD: Normal with no signs of trauma. EYES: Extraocular movements intact, sclera anicteric, conjunctiva clear. No ptosis. ENT: Oropharynx clear without exudates, moist mucous membranes. NECK: Trachea midline, full range of motion, supple. LUNGS: Breath sounds equal, +Rhonchi at biltaeral bases, no accessory muscle use HEART: Tachycardic, S1, S2 without murmur, rub or gallop. ABDOMEN: Soft, nontender, nondistended, normoactive bowel sounds, no guarding, no rebound, no hepatosplenomegaly, no masses. EXTREMITIES: 2+ pulses, warm, well-perfused, no edema. NEUROLOGICAL: Cranial nerves II through XII grossly intact. Normal speech, gait not observed. PSYCH: Normal mood, normal affect. SKIN: Warm, dry, normal turgor, no rashes or lesions noted Laboratory Results - last 24 hr 12/01/17 12/01/17 12/02/17 19:30 19:30 10:10 WBC RBC Hgb Hct MCV MCH MCHC RDW Plt Count MPV Sodium Potassium Chloride Carbon Dioxide Anion Gap BUN Creatinine Creat Clearance w eGFR Random Glucose Calcium Phosphorus Magnesium Total Bilirubin AST ALT Alkaline Phosphatase Total Protein Albumin Hepatitis A Ab Total Negative Hep Bs Antigen Negative Hep Bs Antibody Non reactive Hep B Core Total Ab Negative Hepatitis C Antibody Cancelled <0.1 Blood Type A POSITIVE Antibody Screen Negative Crossmatch See Detail 12/02/17 12/03/17 12/03/17 10:10 06:10 06:10 WBC 8.4 RBC 3.58 L D Hgb 9.2 L D Hct 29.3 L D MCV 81.7 MCH 25.6 L MCHC 31.4 L RDW 21.6 H Plt Count 314 MPV 8.1 Sodium 136 137 Potassium 4.3 D 4.6 Chloride 98 95 L Carbon Dioxide 27 28 Anion Gap 11 14 BUN 46 H D 31 H D Creatinine 6.2 H D 5.2 H Creat Clearance w eGFR 9.93 12.17 Random Glucose 185 H 120 H D Calcium 8.0 L 8.5 Phosphorus 5.4 H D 4.7 Magnesium 2.2 2.1 Total Bilirubin 0.6 D 0.9 D AST 14 L D 16 ALT 27 25 Alkaline Phosphatase 273 H 288 H Total Protein 6.5 7.0 Albumin 3.0 L 3.1 L Hepatitis A Ab Total Hep Bs Antigen Hep Bs Antibody Hep B Core Total Ab Hepatitis C Antibody Blood Type Antibody Screen Crossmatch Active Medications Generic Name Dose Route Start Last Admin Trade Name Freq PRN Reason Stop Dose Admin Calcium Acetate 667 mg 12/02/17 17:30 12/03/17 08:15 Phoslo - PO 667 mg TIDCM [facility] Administration Diphenhydramine HCl 25 mg 12/03/17 11:00 12/03/17 10:57 Benadryl Injection - IVPUSH 12/03/17 11:01 25 mg ONCE ONE Administration Gabapentin 100 mg 12/02/17 22:00 12/03/17 05:34 Neurontin - PO 100 mg TID [facility] Administration Heparin Sodium (Porcine) 5,000 unit 12/02/17 22:00 12/03/17 05:35 Heparin - SQ 5,000 unit TID [facility] Administration Oxycodone HCl 5 mg 12/02/17 14:21 Roxicodone - PO Q6H PRN PAIN Sertraline HCl 50 mg 12/03/17 10:00 12/03/17 09:57 Zoloft - PO 50 mg DAILY [facility] Administration Sevelamer Carbonate 800 mg 12/02/17 17:30 12/03/17 08:15 Renvela - PO 800 mg TIDCM [facility] Administration ASSESSMENT/PLAN: 42 y/o man with HTN, ESRD (non-compliant with HD), asthma who presented to ED with shortness of breath and pre-syncope likely in the setting of volume overload and hypotension in setting of excess anti-hypertensives Renal: ESRD, presented with hyperkalemia and volume overload -Patient tolerated HD yesterday. Continue Dialysis per Renal. Dr. Rodriguez on the case -Monitor BMP's -Monitor H/H, transfuse below 7 Pulmonary: SOB 2/2 to volume overload though cannot r/o PNA -O2 as needed -No Leukocytosis, no fevers -CXR: Congestion CV: HTN at baseline presented with hypotension likely 2/2 excess antihypertensives -hemodynamic monitoring -hold antihypertensives -initiate pressors as needed FEN/GI -No Fluids -Monitor -Regular diet, patient noncompliant with renal diet PPX: -SQ heparin -no indication for GI ppx DISPO: Transfer to med/surg Visit type - Emergency Visit Emergency Visit: Yes ED Registration Date: 12/01/17 Care time: The patient presented to the Emergency Department on the above date and was hospitalized for further evaluation of their emergent condition. - New Patient This patient is new to me today: No - Critical Care Critical Care patient: Yes Total Critical Care Time (in minutes): 35 Critical Care Statement: The care of this patient involved high complexity decision making to prevent further life threatening deterioration of the patient 's condition and/or to evaluate & treat vital organ system(s) failure or risk of failure.
--- NOTE | 2017-12-03 15:10 | PN ---
Physical Exam: SUBJECTIVE: Patient seen and examined in ICU. He complaints of sob walking to bathroom. He is concerned his heart rate has been fast. OBJECTIVE: Vital Signs Period Temp Pulse Resp BP Sys/Mcintyre Pulse Ox Last 24 Hr 98.4 F-99.4 F 82-127 16-22 97-143/55-83 PE Neuro: alert, awake, cn 2-12 intact Pulm: b/l basilar rales, + cough, course bs CV: s1 s2 tachycardia Abd: s nt nd + bs Ext: + 2 edema, b/l feet dressing cdi, LUE AVF + thrill Laboratory Results - last 24 hr 12/01/17 12/02/17 12/03/17 19:30 10:10 06:10 WBC 8.4 RBC 3.58 L D Hgb 9.2 L D Hct 29.3 L D MCV 81.7 MCH 25.6 L MCHC 31.4 L RDW 21.6 H Plt Count 314 MPV 8.1 Sodium Potassium Chloride Carbon Dioxide Anion Gap BUN Creatinine Creat Clearance w eGFR Random Glucose Calcium Phosphorus Magnesium Total Bilirubin AST ALT Alkaline Phosphatase Total Protein Albumin Hepatitis A Ab Total Negative Hep Bs Antigen Negative Hep Bs Antibody Non reactive Hep B Core Total Ab Negative Hepatitis C Antibody <0.1 Blood Type A POSITIVE Antibody Screen Negative Crossmatch See Detail 12/03/17 06:10 WBC RBC Hgb Hct MCV MCH MCHC RDW Plt Count MPV Sodium 137 Potassium 4.6 Chloride 95 L Carbon Dioxide 28 Anion Gap 14 BUN 31 H D Creatinine 5.2 H Creat Clearance w eGFR 12.17 Random Glucose 120 H D Calcium 8.5 Phosphorus 4.7 Magnesium 2.1 Total Bilirubin 0.9 D AST 16 ALT 25 Alkaline Phosphatase 288 H Total Protein 7.0 Albumin 3.1 L Hepatitis A Ab Total Hep Bs Antigen Hep Bs Antibody Hep B Core Total Ab Hepatitis C Antibody Blood Type Antibody Screen Crossmatch Active Medications Generic Name Dose Route Start Last Admin Trade Name Freq PRN Reason Stop Dose Admin Calcium Acetate 667 mg 12/02/17 17:30 12/03/17 14:09 Phoslo - PO 667 mg TIDCM [facility] Administration Gabapentin 100 mg 12/02/17 22:00 12/03/17 14:10 Neurontin - PO 100 mg TID [facility] Administration Heparin Sodium (Porcine) 5,000 unit 12/02/17 22:00 12/03/17 14:09 Heparin - SQ 5,000 unit TID [facility] Administration Oxycodone HCl 5 mg 12/02/17 14:21 Roxicodone - PO Q6H PRN PAIN Sertraline HCl 50 mg 12/03/17 10:00 12/03/17 09:57 Zoloft - PO 50 mg DAILY [facility] Administration Sevelamer Carbonate 800 mg 12/02/17 17:30 12/03/17 14:09 Renvela - PO 800 mg TIDCM [facility] Administration Assessment: 42 year old male with PMHx of HTN, ESRD (on HD, non-compliant), asthma, who presented to the ED with shortness of breath and pre-syncope. Plan: 1. Shortness of breath, volume overload, emergent HD 12/01 - CXR still shows congestion - Further HD per Renal - ECHO ordered 2. ESRD - See above 3. Tachycardia, Atrial tachycardia vs a fib - Monitor appears ST - Possible fluid overload - Obtain le doppler r/o dvt - BB om hold, hold while in lorie - Blood cx negative, no infectious signs at this time 4. Hypotension - Resolved, BP stable 5. Acute on chronic anemia - Received blood w HD 6. B/l feet ulcers - Dressing changes daily DVT - heparin sq Visit type - Emergency Visit Emergency Visit: Yes ED Registration Date: 12/01/17 Care time: The patient presented to the Emergency Department on the above date and was hospitalized for further evaluation of their emergent condition. - New Patient This patient is new to me today: Yes Date on this admission: 12/03/17 - Critical Care Critical Care patient: No
--- NOTE | 2017-12-03 17:13 | PN ---
Progress Note, Physician Chief Complaint: SOB History of Present Illness: 42 year old male with a pmhx of asthma, ESRD on HD, and htn presenting with sob and near syncope. Patient says today felt sob and weak which has been worsening last few days. Was trying to get up and fiance reports he fell back in bed due to weakness but did not lose consciousness. No chest pain. + chronic LE edema. Last dialysis 2 days ago but fiance reports he is not compliant. Denies any fever, chills, sweats. No palpitations. - Current Medication List Current Medications: Active Medications Calcium Acetate (Phoslo -) 667 mg PO TIDCM [facility] Last Admin: 12/03/17 17:09 Dose: 667 mg Gabapentin (Neurontin -) 100 mg PO TID [facility] Last Admin: 12/03/17 14:10 Dose: 100 mg Heparin Sodium (Porcine) (Heparin -) 5,000 unit SQ TID [facility] Last Admin: 12/03/17 14:09 Dose: 5,000 unit Oxycodone HCl (Roxicodone -) 5 mg PO Q6H PRN PRN Reason: PAIN Sertraline HCl (Zoloft -) 50 mg PO DAILY [facility] Last Admin: 12/03/17 09:57 Dose: 50 mg Sevelamer Carbonate (Renvela -) 800 mg PO TIDCM [facility] Last Admin: 12/03/17 17:08 Dose: 800 mg - Objective Vital Signs: Vital Signs Temperature 99.4 F 12/03/17 08:25 Pulse Rate 122 H 12/03/17 14:20 Respiratory Rate 22 12/03/17 14:20 Blood Pressure 143/76 12/03/17 14:20 O2 Sat by Pulse Oximetry (%) 98 12/02/17 09:00 Constitutional: Yes: No Distress Cardiovascular: Yes: Tachycardia, JVD, Murmur (3/6 HSM apex), S1, S2 Respiratory: Yes: Rales Gastrointestinal: Yes: Soft Edema: LLE: 1+, RLE: 1+ Labs: CBC, BMP 12/03/17 06:10 12/03/17 06:10 INR, PTT INR 1.38 (0.82-1.09) H 12/01/17 09:30 Problem List - Problems (1) Fluid overload Code(s): E87.70 - FLUID OVERLOAD, UNSPECIFIED Qualifiers: Hypervolemia type: unspecified Qualified Code(s): E87.70 - Fluid overload, unspecified Assessment/Plan 42 year old male with a pmhx of asthma, ESRD on HD, and htn presenting with sob and near syncope. Patient says today felt sob and weak which has been worsening last few days. Was trying to get up and fiance reports he fell back in bed due to weakness but did not lose consciousness. No chest pain. + chronic LE edema. Last dialysis 2 days ago but fiance reports he is not compliant. Denies any fever, chills, sweats. No palpitations. 1) SOB/Volume overloaded -Echocardiogram with nl lvef but mod dilated RV and severe pulm htn with severe MR. ?calcification vs vegetation on mitral valve. -Volume overloaded still. Continue volume removal with dialysis Will continue telemetry monitoring in ICU. Would start low dose metoprolol 25mg q12 for rate control for atrial arrhythmia possible aflutter. Will uptitrate as tolerated Would start him on heparin for anticoagulation if no contraindication Will consider ELIER to further evaluate mitral valve Will follow with you
[2017-12-03] MEDS ORDERED: METOPROLOL TARTRATE 25 MG TABLET (FP) PO SCH ×2 (17:15→17:28)
[2017-12-03] MEDS ORDERED: HEPARIN NA (PORCINE) 5,000 UNITS/ML 1ML VIAL IVPUSH PRN ×2 (17:25)
[2017-12-03] MEDS ORDERED: METOPROLOL TARTRATE 25 MG TABLET (FP) PO ONE (17:45)
[2017-12-03] MEDS: METOPROLOL TARTRATE 25 MG TABLET (FP) PO SCH ×2 (17:52→21:43)
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
[2017-12-03] MEDS: HEPARIN INFUSION - 25,000 UNITS/500 ML INFUS.BAG IVPB SCH (21:43)
[2017-12-04] MEDS ORDERED: diphenhydrAMINE HCL 25 MG CAPSULE (FP) PO ONE (06:11)
[2017-12-04] MEDS: GABAPENTIN 100 MG CAPSULE (FP) PO SCH ×3 (06:20→21:08)
[2017-12-04] MEDS ORDERED: EPOETIN ALFA 10,000 UNIT/1 ML VIAL IVPUSH ONE (06:45)
[2017-12-04 06:53] LABS: BASO % 0.9 % (0-2.0); EOS % 3.9 % (0-4.5); HEMATOCRIT 27.6 % (35.4-49); HEMOGLOBIN 8.8 GM/dL (11.7-16.9); LYMPH % 23.8 % (8-40); MCH 26.1 pg (25.7-33.7); MEAN CELL VOLUME 81.5 fl (80-96); MEAN PLT VOLUME 7.9 fl (7.5-11.1); MONO % 15.6 % (3.8-10.2); NEUT % 55.8 % (42.8-82.8); PLATELET COUNT 289 K/MM3 (134-434); RBC 3.38 M/mm3 (4.00-5.60); RDW 20.9 % (11.9-15.9); WHITE BLOOD COUNT 6.7 K/mm3 (4.0-10.0)
[2017-12-04 07:19] LABS: INR 1.42 (0.82-1.09)
[2017-12-04 07:45] LABS: ALBUMIN 2.9 g/dl (3.4-5.0); ALK PHOS 299 U/L (45-117); ANION GAP 12 (8-16); BILIRUBIN,TOTAL 0.8 mg/dL (0.2-1.0); BLOOD UREA NITROGEN 46 mg/dL (7-18); CALCIUM 8.3 mg/dL (8.5-10.1); CHLORIDE 95 mmol/L (98-107); CO2 27 mmol/L (21-32); CREATININE 7.3 mg/dL (0.7-1.3); GLUCOSE,RANDOM 107 mg/dL (74-106); MAGNESIUM 2.1 mg/dL (1.8-2.4); PHOSPHOROUS 6.7 mg/dL (2.5-4.9); POTASSIUM 4.9 mmol/L (3.5-5.1); SGOT/AST 23 U/L (15-37); SGPT/ALT 28 U/L (12-78); SODIUM 134 mmol/L (136-145); TOT PROT 6.7 g/dl (6.4-8.2)
--- NOTE | 2017-12-04 10:03 | PN ---
Progress Note, Physician History of Present Illness: PULMONARY ALERT,ON HD,-RESP DISTRESS - Current Medication List Current Medications: Active Medications Calcium Acetate (Phoslo -) 667 mg PO TIDCM [facility] Last Admin: 12/03/17 17:09 Dose: 667 mg Gabapentin (Neurontin -) 100 mg PO TID [facility] Last Admin: 12/04/17 06:20 Dose: 100 mg Heparin Sodium (Porcine) (Heparin -) 1,000 unit IVPUSH PRN PRN PRN Reason: Heparin Heparin Sodium (Porcine) (Heparin -) 5,000 unit IVPUSH PRN PRN PRN Reason: Heparin Heparin Sodium/Dextrose (Heparin Infusion -) 25,000 units in 500 mls @ 20 mls/ hr IVPB TITR [facility]; 1,000 UNITS/HR PRN Reason: Protocol Last Admin: 12/03/17 21:43 Dose: 1,000 units/hr, 20 mls/hr Metoprolol Tartrate (Lopressor -) 25 mg PO BID [facility] Last Admin: 12/03/17 21:43 Dose: 25 mg Oxycodone HCl (Roxicodone -) 5 mg PO Q6H PRN PRN Reason: PAIN Sertraline HCl (Zoloft -) 50 mg PO DAILY [facility] Last Admin: 12/03/17 09:57 Dose: 50 mg Sevelamer Carbonate (Renvela -) 800 mg PO TIDCM [facility] Last Admin: 12/03/17 17:08 Dose: 800 mg - Objective Vital Signs: Vital Signs Temperature 98.0 F 12/04/17 06:00 Pulse Rate 124 H 12/04/17 09:00 Respiratory Rate 18 12/04/17 09:00 Blood Pressure 123/80 12/04/17 09:00 O2 Sat by Pulse Oximetry (%) 95 12/03/17 21:00 Constitutional: Yes: Well Nourished, Calm Eyes: Yes: WNL HENT: Yes: WNL Neck: Yes: WNL Cardiovascular: Yes: Regular Rate and Rhythm, S1, S2 Respiratory: Yes: Rales (MIYA CRACKLES) Gastrointestinal: Yes: Normal Bowel Sounds, Soft Extremities: Yes: WNL Edema: No Labs: CBC, BMP 12/04/17 05:10 12/04/17 05:10 INR, PTT INR 1.42 (0.82-1.09) H 12/04/17 05:10 Problem List - Problems (1) ESRD (end stage renal disease) Code(s): N18.6 - END STAGE RENAL DISEASE (2) Fluid overload Code(s): E87.70 - FLUID OVERLOAD, UNSPECIFIED Qualifiers: Hypervolemia type: unspecified Qualified Code(s): E87.70 - Fluid overload, unspecified (3) Shortness of breath Code(s): R06.02 - SHORTNESS OF BREATH (4) HTN (hypertension) Code(s): I10 - ESSENTIAL (PRIMARY) HYPERTENSION (5) Hyperkalemia Code(s): E87.5 - HYPERKALEMIA Assessment/Plan ASSESSMENT AND PLAN: Volume Overload ESRD on HD Noncompliance HTN Pulmonary Htn Asthma - HD per renal - transfuse with HD - monitor lytes - monitor CXR - monitor H/H - DVT prophylaxis DR CARDENAS
[2017-12-04] MEDS: CALCIUM ACETATE 667 MG CAPSULE (FP) PO SCH ×3 (10:29→17:43)
[2017-12-04] MEDS: SEVELAMER CARBONATE 800 MG TAB (FP) PO SCH ×3 (10:29→17:42)
[2017-12-04] MEDS: HEPARIN INFUSION - 25,000 UNITS/500 ML INFUS.BAG IVPB SCH (10:31)
--- NOTE | 2017-12-04 10:44 | PN ---
Physical Exam: SUBJECTIVE: Patient seen and examined. He reports palpitations with exertion, generalized body pain and itching. He states he takes benadryl q6hr at home and percocet for pain OBJECTIVE: Vital Signs Period Temp Pulse Resp BP Sys/Mcintyre Pulse Ox Last 24 Hr 98.0 F-380 F 112-124 16-22 110-146/56-95 95 PE Neuro: alert, awake, cn 2-12 intact Pulm: b/l basilar rales, mild wheeze, course bs CV: s1 s2 tachycardia + systolic murmur Abd: s nt nd + bs Ext: + 2 edema, b/l feet dressing cdi, LUE AVF + thrill Skin: dry skin, pealing Laboratory Results - last 24 hr 12/04/17 12/04/17 12/04/17 05:10 05:10 05:10 WBC 6.7 RBC 3.38 L Hgb 8.8 L Hct 27.6 L MCV 81.5 MCH 26.1 MCHC 32.0 RDW 20.9 H Plt Count 289 MPV 7.9 Neutrophils % 55.8 D Lymphocytes % 23.8 D Monocytes % 15.6 H Eosinophils % 3.9 D Basophils % 0.9 PT with INR 16.00 H INR 1.42 H PTT (Actin FS) Sodium 134 L Potassium 4.9 Chloride 95 L Carbon Dioxide 27 Anion Gap 12 BUN 46 H D Creatinine 7.3 H D Creat Clearance w eGFR 8.23 Random Glucose 107 H Calcium 8.3 L Phosphorus 6.7 H D Magnesium 2.1 Total Bilirubin 0.8 AST 23 D ALT 28 Alkaline Phosphatase 299 H Total Protein 6.7 Albumin 2.9 L 12/04/17 05:10 PTT (Actin FS) 52.5 H D Active Medications Generic Name Dose Route Start Last Admin Trade Name Freq PRN Reason Stop Dose Admin Calcium Acetate 667 mg 12/02/17 17:30 12/04/17 10:29 Phoslo - PO Not Given TIDCM [facility] Gabapentin 100 mg 12/02/17 22:00 12/04/17 06:20 Neurontin - PO 100 mg TID [facility] Administration Heparin Sodium (Porcine) 1,000 unit 12/03/17 17:25 Heparin - IVPUSH PRN PRN Heparin Heparin Sodium (Porcine) 5,000 unit 12/03/17 17:25 Heparin - IVPUSH PRN PRN Heparin Heparin Sodium/Dextrose 25,000 units in 500 mls @ 20 mls/hr 12/03/17 17:30 10:31 Heparin Infusion - IVPB 1,000 units/hr TITR [facility] 20 mls/hr Protocol Administration 1,000 UNITS/HR Metoprolol Tartrate 25 mg 12/03/17 17:45 12/03/17 21:43 Lopressor - PO 25 mg BID [facility] Administration Oxycodone HCl 5 mg 12/02/17 14:21 Roxicodone - PO Q6H PRN PAIN Sertraline HCl 50 mg 12/03/17 10:00 12/03/17 09:57 Zoloft - PO 50 mg DAILY [facility] Administration Sevelamer Carbonate 800 mg 12/02/17 17:30 12/04/17 10:29 Renvela - PO Not Given TIDCM [facility] Assessment: 42 year old male with PMHx of HTN, ESRD (on HD, non-compliant), asthma, admitted with worsening shortness of breath and pre-syncope. Plan: 1. Shortness of breath, volume overload, emergent HD 12/01 - AM CXR noted, w/ congestion - HD today - ECHO with nl lvef but mod dilated RV and severe pulm htn with severe MR. ? calcification vs vegetation on mitral valve. 2. ESRD - HD today per Renal service 3. Tachycardia, Atrial tachycardia vs a flutter - US Doppler negative for DVT - Maintain heparin gtt - Increase metoprolol 50mg BID, uptitrate per BP - ELIER next week 4. Hypotension - Resolved, BP stable 5. Acute on chronic anemia - Blood with HD 6. B/l feet ulcers - Dressing changes daily 7. Generalized pain - Gabapentin - Oxycodon PRN Visit type - Emergency Visit Emergency Visit: Yes ED Registration Date: 12/01/17 Care time: The patient presented to the Emergency Department on the above date and was hospitalized for further evaluation of their emergent condition. - New Patient This patient is new to me today: No - Critical Care Critical Care patient: No - Discharge Referral Referred to [facility] No
[2017-12-04] MEDS ORDERED: METOPROLOL TARTRATE 25 MG TABLET (FP) PO ONE (10:53)
[2017-12-04] MEDS: METOPROLOL TARTRATE 25 MG TABLET (FP) PO SCH ×2 (11:05→21:07)
[2017-12-04] MEDS: SERTRALINE HCL 50 MG TABLET (FP) PO SCH (11:31)
[2017-12-04] MEDS: MINERAL OIL/PET HY-PHL TOPICAL OINTMENT 454 GM JAR TP SCH ×2 (13:30→21:07)
[2017-12-04] MEDS ORDERED: ONDANSETRON 4 MG TABLET PO PRN (16:00)
[2017-12-04] MEDS: ONDANSETRON *ODT* 4 MG TABLET SL PRN (16:27)
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
[2017-12-04] MEDS ORDERED: oxyCODONE HCL 5 MG TABLET PO PRN (19:49)
[2017-12-04] MEDS: ACETAMINOPHEN 325 MG TABLET (FP) PO PRN (21:08)
--- NOTE | 2017-12-04 21:44 | PN ---
Progress Note, Physician Chief Complaint: Patient appears comfortable while sitting in chair. His SOB improved. Still feels palpitation. Tele shows possible atrial flutter with 2:1 AVB and rapid VR. History of Present Illness: 42 year-old man with a PMHx of HTN, asthma, and ESRD on HD admitted with SOB and near syncope. No LOC. No chest pain. +chronic LE edema. Patient transferred to ICU for rapid atrial flutter. -Echocardiogram 12/03/2016 showed Moderate concentric LVH with normal LV systolic function. But mod dilated RV and severe pulm htn with severe MR and TR. Severe MAC and possible vegetation on mitral valve. - Current Medication List Current Medications: Active Medications Acetaminophen (Tylenol -) 325 mg PO Q6H PRN PRN Reason: FEVER OR PAIN Last Admin: 12/04/17 21:08 Dose: 325 mg Calcium Acetate (Phoslo -) 667 mg PO TIDCM [facility] Emollient Ointment (Aquaphor -) 1 applic TP BID [facility] Last Admin: 12/04/17 21:07 Dose: 1 applic Epoetin Adilson (Procrit -) 6,000 unit IVPUSH ONCE ONE Stop: 12/04/17 19:50 Gabapentin (Neurontin -) 100 mg PO TID [facility] Last Admin: 12/04/17 21:08 Dose: 100 mg Metoprolol Tartrate (Lopressor -) 50 mg PO BID [facility] Last Admin: 12/04/17 21:07 Dose: 50 mg Ondansetron HCl (Zofran Odt -) 4 mg SL Q6H PRN PRN Reason: NAUSEA Last Admin: 12/04/17 16:27 Dose: 4 mg Oxycodone HCl (Roxicodone -) 5 mg PO Q6H PRN PRN Reason: PAIN Sertraline HCl (Zoloft -) 50 mg PO DAILY [facility] Sevelamer Carbonate (Renvela -) 800 mg PO TIDCM [facility] - Objective Vital Signs: Vital Signs Temperature 99 F 12/04/17 15:28 Pulse Rate 115 H 12/04/17 20:00 Respiratory Rate 18 12/04/17 20:00 Blood Pressure 138/79 12/04/17 16:00 O2 Sat by Pulse Oximetry (%) 96 12/04/17 20:03 Constitutional: Yes: No Distress, Calm, Poor Hygeine Eyes: Yes: Conjunctiva Clear, EOM Intact, PERRL, Sclera Icterus HENT: Yes: Atraumatic, Normocephalic Neck: Yes: Supple, Trachea Midline Cardiovascular: Yes: Tachycardia, Pulse Irregular Respiratory: Yes: Regular, Rales Gastrointestinal: Yes: Normal Bowel Sounds, Soft ...Rectal Exam: Yes: Deferred Edema: LLE: 1+, RLE: 1+ Peripheral Pulses WNL: Yes Labs: CBC, BMP 12/04/17 05:10 12/04/17 05:10 INR, PTT INR 1.42 (0.82-1.09) H 12/04/17 05:10 Assessment/Plan 42 year-old man with a PMHx of HTN, asthma, and ESRD on HD admitted with SOB and near syncope. No LOC. No chest pain. +chronic LE edema. Patient transferred to ICU for rapid atrial flutter. -Echocardiogram 12/03/2016 showed Moderate concentric LVH with normal LV systolic function. But mod dilated RV and severe pulm htn with severe MR and TR. Severe MAC and possible vegetation on mitral valve. 1) Atrial flutter with rapid VR: VR control: Increase metoprolol to 75 mg BID. Digoxin IV loading with 0.25 mg q4-6h X4 doses to a total of 1 mg. Start digoxin 0.125 mg every other day as maintenance dose. Continue AC with IV heparin. May start Warfarin. 2) Acute diastolic CHF with severe MR and pulmonary HTN. Continue volume removal with dialysis. Repeat echo after euvolemic. VR control will be helpful for CHF management. 3) Possible mitral valve vegetation and severe MR. Will consider ELIER to further evaluate mitral valve Will follow with you
[2017-12-05] MEDS: GABAPENTIN 100 MG CAPSULE (FP) PO SCH ×3 (06:19→21:12)
[2017-12-05] MEDS: CALCIUM ACETATE 667 MG CAPSULE (FP) PO SCH ×3 (08:38→17:49)
[2017-12-05] MEDS: SEVELAMER CARBONATE 800 MG TAB (FP) PO SCH ×3 (08:38→17:48)
[2017-12-05] MEDS: METOPROLOL TARTRATE 25 MG TABLET (FP) PO SCH ×2 (09:03→21:12)
[2017-12-05] MEDS: SERTRALINE HCL 50 MG TABLET (FP) PO SCH (09:07)
[2017-12-05] MEDS: MINERAL OIL/PET HY-PHL TOPICAL OINTMENT 454 GM JAR TP SCH ×2 (09:12→21:13)
[2017-12-05] MEDS ORDERED: HEPARIN NA (PORCINE) 5,000 UNITS/ML 1ML VIAL IVPUSH PRN (10:56)
[2017-12-05] MEDS ORDERED: HEPARIN INFUSION - 25,000 UNITS/500 ML INFUS.BAG IVPB SCH (11:00)
[2017-12-05] MEDS: ONDANSETRON *ODT* 4 MG TABLET SL PRN (11:50)
[2017-12-05] MEDS: HEPARIN NA (PORCINE) 5,000 UNITS/ML 1ML VIAL IVPUSH PRN ×2 (14:15→23:30)
[2017-12-05] MEDS: POLYETHYLENE GLYCOL 3350 119 GM BTL PO SCH (16:10)
[2017-12-05] MEDS ORDERED: LACTULOSE 20 GM/30 ML UDC (FOR ORAL USE ONLY) PO ONE ×2 (16:41→19:00)
--- NOTE | 2017-12-05 16:42 | PN ---
Physical Exam: SUBJECTIVE: Patient seen and examined. He complaints of nausea preventing him from eating. OBJECTIVE: Vital Signs Period Temp Pulse Resp BP Sys/Mcintyre Pulse Ox Last 24 Hr 98.2 F-98.6 F 106-115 18-20 111-132/37-98 96-96 PE Neuro: alert, awake, cn 2-12 intact Pulm: course bs, basilar rhonchi CV: s1 s2 tachycardia + systolic murmur Abd: s nt nd + bs Ext: + 2 edema, b/l feet dressing cdi, LUE AVF + thrill Skin: dry skin, pealing/dry Laboratory Results - last 24 hr 12/05/17 13:05 PTT (Actin FS) 38.0 H Active Medications Generic Name Dose Route Start Last Admin Trade Name Freq PRN Reason Stop Dose Admin Acetaminophen 325 mg 12/04/17 12:41 12/04/17 21:08 Tylenol - PO 325 mg Q6H PRN Administration FEVER OR PAIN Calcium Acetate 667 mg 12/05/17 08:00 12/05/17 12:39 Phoslo - PO 667 mg TIDCM [facility] Administration Emollient Ointment 1 applic 12/04/17 11:00 12/05/17 09:12 Aquaphor - TP 1 applic BID [facility] Administration Epoetin Adilson 6,000 unit 12/04/17 19:49 Procrit - IVPUSH 12/04/17 19:50 ONCE ONE Gabapentin 100 mg 12/04/17 22:00 12/05/17 14:14 Neurontin - PO 100 mg TID [facility] Administration Heparin Sodium (Porcine) 1,000 unit 12/05/17 10:56 Heparin - IVPUSH PRN PRN Heparin Heparin Sodium (Porcine) 5,000 unit 12/05/17 10:56 12/05/17 14:15 Heparin - IVPUSH 5,000 unit PRN PRN Administration Heparin Heparin Sodium/Dextrose 25,000 units in 500 mls @ 20 mls/hr 12/05/17 11:00 14:15 Heparin Infusion - IVPB 1,150 units/hr TITR [facility] 23 mls/hr Protocol Titration 1,000 UNITS/HR Metoprolol Tartrate 50 mg 12/04/17 12:39 12/05/17 09:03 Lopressor - PO 50 mg BID [facility] Administration Ondansetron HCl 4 mg 12/04/17 16:24 12/05/17 11:50 Zofran Odt - SL 4 mg Q6H PRN Administration NAUSEA Oxycodone HCl 5 mg 12/04/17 19:49 Roxicodone - PO Q6H PRN PAIN Sertraline HCl 50 mg 12/05/17 10:00 12/05/17 09:07 Zoloft - PO 50 mg DAILY [facility] Administration Sevelamer Carbonate 800 mg 12/05/17 08:00 12/05/17 12:40 Renvela - PO 800 mg TIDCM [facility] Administration Imaging: - ECHO with nl lvef but mod dilated RV and severe pulm htn with severe MR. ? calcification vs vegetation on mitral valve. Assessment: 42 year old male with PMHx of HTN, ESRD (on HD, non-compliant), asthma, admitted with worsening shortness of breath and pre-syncope. Plan: 1. Shortness of breath, volume overload, emergent HD 12/01 - Improving, off supplemental o2 2. ESRD - HD tomorrow 3. Tachycardia, Atrial tachycardia vs a flutter - Digoxin loading 0.25mg q4hr x4 doses, total of 1 gm - EKG in AM - Start coumadin to heparin bridge - Maintain metoprolol 50mg BID, uptitrate per BP - ELIER next week - D/w cardiology 4. Hypotension - Resolved, BP stable 5. Acute on chronic anemia - Blood with HD 6. B/l feet ulcers - Dressing changes daily 7. Generalized pain - Gabapentin - Oxycodon PRN 8. Constipation - Lactulose, senna x1 - Miralax daily Visit type - Emergency Visit Emergency Visit: Yes ED Registration Date: 12/01/17 Care time: The patient presented to the Emergency Department on the above date and was hospitalized for further evaluation of their emergent condition. - New Patient This patient is new to me today: No - Critical Care Critical Care patient: No
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
[2017-12-05] MEDS ORDERED: DIGOXIN 0.5 MG/2 ML AMPUL IVPUSH SCH (17:00)
--- NOTE | 2017-12-05 17:55 | PN ---
Progress Note, Physician Chief Complaint: Patient complains of nausea. His SOB improved. Still feels palpitation. Tele shows possible atrial flutter with 2:1 AVB and rapid VR vs sinus tachycardia. History of Present Illness: 42 year-old man with a PMHx of HTN, asthma, and ESRD on HD admitted with SOB and near syncope. No LOC. No chest pain. +chronic LE edema. Patient transferred to ICU for rapid atrial flutter. Tele shows persistent narrow complex tachycardia at 110 -120 BPM: sinus tachycardia vs atrial flutter. Repeat 12 lead ECG requested. -Echocardiogram 12/03/2016 showed Moderate concentric LVH with normal LV systolic function. But mod dilated RV and severe pulm htn with severe MR and TR. Severe MAC and possible vegetation on mitral valve. - Current Medication List Current Medications: Active Medications Acetaminophen (Tylenol -) 325 mg PO Q6H PRN PRN Reason: FEVER OR PAIN Last Admin: 12/04/17 21:08 Dose: 325 mg Calcium Acetate (Phoslo -) 667 mg PO TIDCM [facility] Last Admin: 12/05/17 12:39 Dose: 667 mg Digoxin (Lanoxin Injection -) 0.25 mg IVPUSH Q4H [facility] Stop: 12/06/17 05:01 Emollient Ointment (Aquaphor -) 1 applic TP BID [facility] Last Admin: 12/05/17 09:12 Dose: 1 applic Epoetin Adilson (Procrit -) 6,000 unit IVPUSH ONCE ONE Stop: 12/04/17 19:50 Epoetin Adilson (Epogen -) 7,000 units IVPUSH ONCE ONE Stop: 12/06/17 16:49 Gabapentin (Neurontin -) 100 mg PO TID [facility] Last Admin: 12/05/17 14:14 Dose: 100 mg Heparin Sodium (Porcine) (Heparin -) 1,000 unit IVPUSH PRN PRN PRN Reason: Heparin Heparin Sodium (Porcine) (Heparin -) 5,000 unit IVPUSH PRN PRN PRN Reason: Heparin Last Admin: 12/05/17 14:15 Dose: 5,000 unit Heparin Sodium/Dextrose (Heparin Infusion -) 25,000 units in 500 mls @ 20 mls/ hr IVPB TITR [facility]; 1,000 UNITS/HR PRN Reason: Protocol Last Titration: 12/05/17 14:15 Dose: 1,150 units/hr, 23 mls/hr Lactulose (Cephulac (Oral Use)) 20 gm PO ONCE ONE Stop: 12/05/17 16:42 Metoprolol Tartrate (Lopressor -) 50 mg PO BID [facility] Last Admin: 12/05/17 09:03 Dose: 50 mg Ondansetron HCl (Zofran Odt -) 4 mg SL Q6H PRN PRN Reason: NAUSEA Last Admin: 12/05/17 11:50 Dose: 4 mg Oxycodone HCl (Roxicodone -) 5 mg PO Q6H PRN PRN Reason: PAIN Polyethylene Glycol (Miralax (For Daily Use) -) 17 gm PO DAILY [facility] Senna (Senna -) 1 tab PO HS [facility] Sertraline HCl (Zoloft -) 50 mg PO DAILY [facility] Last Admin: 12/05/17 09:07 Dose: 50 mg Sevelamer Carbonate (Renvela -) 800 mg PO TIDCM [facility] Last Admin: 12/05/17 12:40 Dose: 800 mg Warfarin Sodium (Coumadin -) 5 mg PO DAILY@1800 [facility] - Objective Vital Signs: Vital Signs Temperature 98.6 F 12/05/17 14:00 Pulse Rate 109 H 12/05/17 14:00 Respiratory Rate 20 12/05/17 14:00 Blood Pressure 111/37 12/05/17 14:00 O2 Sat by Pulse Oximetry (%) 96 12/05/17 08:29 Constitutional: Yes: Calm, Mild Distress Eyes: Yes: Conjunctiva Clear, EOM Intact HENT: Yes: Atraumatic, Normocephalic Neck: Yes: Supple, Trachea Midline Cardiovascular: Yes: Regular Rate and Rhythm, Tachycardia Respiratory: Yes: Regular, Rales, Rhonchi, SOB Gastrointestinal: Yes: Normal Bowel Sounds, Soft Edema: Yes Edema: LLE: Trace, RLE: Trace Labs: CBC, BMP 12/04/17 05:10 12/04/17 05:10 INR, PTT INR 1.42 (0.82-1.09) H 12/04/17 05:10 Assessment/Plan 42 year-old man with a PMHx of HTN, asthma, and ESRD on HD admitted with SOB and near syncope. No LOC. No chest pain. +chronic LE edema. Patient transferred to ICU for rapid atrial flutter. Tele shows persistent narrow complex tachycardia at 110 -120 BPM: sinus tachycardia vs atrial flutter. Repeat 12 lead ECG requested. -Echocardiogram 12/03/2016 showed Moderate concentric LVH with normal LV systolic function. But mod dilated RV and severe pulm htn with severe MR and TR. Severe MAC and possible vegetation on mitral valve. 1) Sinus tachycardia vs atrial flutter with rapid VR: Repeat 12 lead ECG. VR control: Increase metoprolol to 75 mg BID. Will start Digoxin IV loading with 0.25 mg q4-6h X4 doses to a total of 1 mg if atrial flutter can be confirmed. Continue AC with IV heparin. May start Warfarin if atrial flutter can be confirmed. 2) Acute diastolic CHF with severe MR and pulmonary HTN. Continue volume removal with dialysis. Repeat echo after euvolemic. VR control will be helpful for CHF management. 3) Possible mitral valve vegetation and severe MR. Will consider ELIER to further evaluate mitral valve Will follow with you
[2017-12-05] MEDS: WARFARIN NA 5 MG TABLET (UD) PO SCH (18:48)
[2017-12-05] MEDS ORDERED: diphenhydrAMINE HCL 25 MG CAPSULE (FP) PO ONE ×2 (20:42→21:30)
[2017-12-05] MEDS: SENNOSIDES 8.6MG TABLET (FP) PO SCH (21:12)
[2017-12-06] MEDS: HEPARIN SOD,PORK IN 0.45% NACL 25,000 UNITS/500 ML INFUS.BAG IVPB SCH ×2 (00:58→12:17)
[2017-12-06] MEDS: GABAPENTIN 100 MG CAPSULE (FP) PO SCH ×3 (06:08→21:19)
[2017-12-06] MEDS ORDERED: EPOETIN ALFA 10,000 UNIT/1 ML VIAL IVPUSH ONE (10:00)
[2017-12-06 10:52] LABS: ANION GAP 24 (8-16); BLOOD UREA NITROGEN 64 mg/dL (7-18); CALCIUM 8.9 mg/dL (8.5-10.1); CHLORIDE 89 mmol/L (98-107); CO2 15 mmol/L (21-32); GLUCOSE,RANDOM 79 mg/dL (74-106); SODIUM 128 mmol/L (136-145)
[2017-12-06 10:56] LABS: INR 2.24 (0.82-1.09); PROTHROMBIN TIME (PATIENT) 25.3 SEC (9.98-11.88)
[2017-12-06] MEDS: SEVELAMER CARBONATE 800 MG TAB (FP) PO SCH ×3 (10:58→17:42)
[2017-12-06] MEDS: CALCIUM ACETATE 667 MG CAPSULE (FP) PO SCH ×3 (10:58→17:42)
[2017-12-06] MEDS: POLYETHYLENE GLYCOL 3350 119 GM BTL PO SCH (10:59)
[2017-12-06 11:05] LABS: CREATININE 8.3 mg/dL (0.7-1.3); POTASSIUM 6.6 mmol/L (3.5-5.1)
--- NOTE | 2017-12-06 11:13 | PN ---
Physical Exam: SUBJECTIVE: Patient seen and examined. He complains of chest pain today, but as we spoke it was subsiding. He did have a large bowel movement. He c/o he hasn't not slept in 2 days. OBJECTIVE: Vital Signs Period Temp Pulse Resp BP Sys/Mcintyre Pulse Ox Last 24 Hr 98.2 F-98.6 F 51-113 18-22 100-144/37-98 94 PE Neuro: alert, awake, cn 2-12 intact Pulm: basilar rhonchi, crackles + wet cough mild tachypneic CV: s1 s2 tachycardia + systolic murmur Abd: s nt nd + bs Ext: + 1 edema, b/l feet dressing cdi Laboratory Results - last 24 hr 12/06/17 12/06/17 12/06/17 08:41 08:41 08:41 PT with INR 25.30 H INR 2.24 H D PTT (Actin FS) 51.3 H D Sodium 128 L Potassium 6.6 H* D Chloride 89 L Carbon Dioxide 15 L D Anion Gap 24 H BUN 64 H D Creatinine 8.3 H* Random Glucose 79 D Calcium 8.9 Creatine Kinase Troponin I Blood Type Antibody Screen Crossmatch 12/06/17 08:41 PT with INR INR PTT (Actin FS) Sodium Potassium Chloride Carbon Dioxide Anion Gap BUN Creatinine Random Glucose Calcium Creatine Kinase 138 Troponin I 0.08 H Blood Type Antibody Screen Crossmatch Active Medications Generic Name Dose Route Start Last Admin Trade Name Freq PRN Reason Stop Dose Admin Acetaminophen 325 mg 12/04/17 12:41 12/04/17 21:08 Tylenol - PO 325 mg Q6H PRN Administration FEVER OR PAIN Calcium Acetate 667 mg 12/05/17 08:00 12/06/17 10:58 Phoslo - PO Not Given TIDCM [facility] Emollient Ointment 1 applic 12/04/17 11:00 12/05/17 21:13 Aquaphor - TP 1 applic BID [facility] Administration Epoetin Adilson 6,000 unit 12/04/17 19:49 Procrit - IVPUSH 12/04/17 19:50 ONCE ONE Gabapentin 100 mg 12/04/17 22:00 12/06/17 06:08 Neurontin - PO 100 mg TID [facility] Administration Heparin Sodium (Porcine) 1,000 unit 12/05/17 10:56 Heparin - IVPUSH PRN PRN Heparin Heparin Sodium (Porcine) 5,000 unit 12/05/17 10:56 12/05/17 23:30 Heparin - IVPUSH 5,000 unit PRN PRN Administration Heparin HEPARIN SOD,PORK IN 0.45% NACL 25,000 units in 500 mls @ 20 mls/hr 12/06/17 00 :30 12/06/17 00:58 Heparin-1/2ns 25,000 Units/500 IVPB 1,300 units/hr TITR [facility] 26 mls/hr Protocol Administration 1,000 UNITS/HR Metoprolol Tartrate 50 mg 12/04/17 12:39 12/05/17 21:12 Lopressor - PO 50 mg BID [facility] Administration Ondansetron HCl 4 mg 12/04/17 16:24 12/05/17 11:50 Zofran Odt - SL 4 mg Q6H PRN Administration NAUSEA Oxycodone HCl 5 mg 12/04/17 19:49 Roxicodone - PO Q6H PRN PAIN Polyethylene Glycol 17 gm 12/05/17 16:45 12/06/17 10:59 Miralax (For Daily Use) - PO Not Given DAILY [facility] Senna 1 tab 12/05/17 22:00 12/05/17 21:12 Senna - PO 1 tab HS [facility] Administration Sertraline HCl 50 mg 12/05/17 10:00 12/05/17 09:07 Zoloft - PO 50 mg DAILY [facility] Administration Sevelamer Carbonate 800 mg 12/05/17 08:00 12/06/17 10:58 Renvela - PO Not Given TIDCM [facility] Warfarin Sodium 5 mg 12/05/17 18:00 12/05/17 18:48 Coumadin - PO 5 mg DAILY@1800 [facility] Administration Imaging: - ECHO with nl lvef but mod dilated RV and severe pulm htn with severe MR. ? calcification vs vegetation on mitral valve. Assessment: 42 year old male with PMHx of HTN, ESRD (on HD, non-compliant), asthma, admitted with worsening shortness of breath and pre-syncope. Plan: 1. Chest pain - EKG appears sinus tach vs atrial tachycardia - Trop mild increase, possible due to vol overload as today is HD day - Will repeat in 6hrs 2. Shortness of breath, volume overload, emergent HD 1/3 - Improving, off supplemental o2 3. ESRD - HD today 4. Tachycardia, Atrial tachycardia vs a flutter - Hold on digoxin - Continue coumadin/heparin gtt until final ruling per cardiology re: a flutter - Maintain metoprolol 50mg BID, uptitrate per BP - Defer ELIER to cards 5. Acute on chronic anemia - Blood with HD 6. B/l feet ulcers - Dressing changes daily 7. Generalized pain - Gabapentin - Oxycodon PRN 8. Constipation - Resolved Visit type - Emergency Visit Emergency Visit: Yes ED Registration Date: 12/01/17 Care time: The patient presented to the Emergency Department on the above date and was hospitalized for further evaluation of their emergent condition. - New Patient This patient is new to me today: No - Critical Care Critical Care patient: No
--- NOTE | 2017-12-06 12:06 | PN ---
Progress Note, Physician History of Present Illness: PULMONARY ALERT,NAD,ON HD. - Current Medication List Current Medications: Active Medications Acetaminophen (Tylenol -) 325 mg PO Q6H PRN PRN Reason: FEVER OR PAIN Last Admin: 12/04/17 21:08 Dose: 325 mg Calcium Acetate (Phoslo -) 667 mg PO TIDCM [facility] Last Admin: 12/06/17 10:58 Dose: Not Given Emollient Ointment (Aquaphor -) 1 applic TP BID [facility] Last Admin: 12/05/17 21:13 Dose: 1 applic Epoetin Adilson (Procrit -) 6,000 unit IVPUSH ONCE ONE Stop: 12/04/17 19:50 Gabapentin (Neurontin -) 100 mg PO TID [facility] Last Admin: 12/06/17 06:08 Dose: 100 mg Heparin Sodium (Porcine) (Heparin -) 1,000 unit IVPUSH PRN PRN PRN Reason: Heparin Heparin Sodium (Porcine) (Heparin -) 5,000 unit IVPUSH PRN PRN PRN Reason: Heparin Last Admin: 12/05/17 23:30 Dose: 5,000 unit HEPARIN SOD,PORK IN 0.45% NACL (Heparin-1/2ns 25,000 Units/500) 25,000 units in 500 mls @ 20 mls/hr IVPB TITR [facility]; 1,000 UNITS/HR PRN Reason: Protocol Last Admin: 12/06/17 00:58 Dose: 1,300 units/hr, 26 mls/hr Metoprolol Tartrate (Lopressor -) 50 mg PO BID [facility] Last Admin: 12/05/17 21:12 Dose: 50 mg Ondansetron HCl (Zofran Odt -) 4 mg SL Q6H PRN PRN Reason: NAUSEA Last Admin: 12/05/17 11:50 Dose: 4 mg Oxycodone HCl (Roxicodone -) 5 mg PO Q6H PRN PRN Reason: PAIN Polyethylene Glycol (Miralax (For Daily Use) -) 17 gm PO DAILY [facility] Last Admin: 12/06/17 10:59 Dose: Not Given Senna (Senna -) 1 tab PO HS [facility] Last Admin: 12/05/17 21:12 Dose: 1 tab Sertraline HCl (Zoloft -) 50 mg PO DAILY [facility] Last Admin: 12/05/17 09:07 Dose: 50 mg Sevelamer Carbonate (Renvela -) 800 mg PO TIDCM [facility] Last Admin: 12/06/17 10:58 Dose: Not Given Warfarin Sodium (Coumadin -) 5 mg PO DAILY@1800 [facility] Last Admin: 12/05/17 18:48 Dose: 5 mg - Objective Vital Signs: Vital Signs Temperature 98.2 F 12/06/17 09:35 Pulse Rate 102 H 12/06/17 11:40 Respiratory Rate 18 12/06/17 11:40 Blood Pressure 80/50 12/06/17 11:40 O2 Sat by Pulse Oximetry (%) 94 L 12/05/17 21:00 Constitutional: Yes: Well Nourished, Calm Eyes: Yes: WNL HENT: Yes: WNL Neck: Yes: WNL Cardiovascular: Yes: Regular Rate and Rhythm, S1, S2 Respiratory: Yes: Rhonchi (FEW SCATTERED RHONCHI) Gastrointestinal: Yes: Normal Bowel Sounds, Soft Extremities: Yes: WNL Edema: No Labs: CBC, BMP 12/04/17 05:10 12/06/17 08:41 INR, PTT INR 2.24 (0.82-1.09) H D 12/06/17 08:41 Problem List - Problems (1) ESRD (end stage renal disease) Code(s): N18.6 - END STAGE RENAL DISEASE (2) Fluid overload Code(s): E87.70 - FLUID OVERLOAD, UNSPECIFIED Qualifiers: Hypervolemia type: unspecified Qualified Code(s): E87.70 - Fluid overload, unspecified (3) Shortness of breath Code(s): R06.02 - SHORTNESS OF BREATH (4) HTN (hypertension) Code(s): I10 - ESSENTIAL (PRIMARY) HYPERTENSION (5) Hyperkalemia Code(s): E87.5 - HYPERKALEMIA Assessment/Plan ASSESSMENT AND PLAN: Volume Overload ESRD on HD Noncompliance HTN Pulmonary Htn Asthma - HD per renal - monitor lytes - monitor CXR - monitor H/H - DVT prophylaxis DR CARDENAS
--- NOTE | 2017-12-06 12:20 | EKG ---
Test Reason : Blood Pressure : / mmHG Vent. Rate : 099 BPM Atrial Rate : 099 BPM P-R Int : 108 ms QRS Dur : 098 ms QT Int : 358 ms P-R-T Axes : 055 118 -04 degrees QTc Int : 459 ms SINUS RHYTHM WITH SHORT SC POOR R WAVE PROGRESSION ANTEROSEPTAL INFARCT (CITED ON OR BEFORE 13-AUG-2016) ABNORMAL ECG WHEN COMPARED WITH ECG OF 01-DEC-2017 08:33, T WAVE VARIATION Confirmed by CALEB BAILEY MD ([id number]) on 12/06/2017 12:20:05 PM Referred By: DF Confirmed By:CALEB BAILYE MD
[2017-12-06] MEDS: MINERAL OIL/PET HY-PHL TOPICAL OINTMENT 454 GM JAR TP SCH ×2 (14:43→21:29)
[2017-12-06] MEDS: SERTRALINE HCL 50 MG TABLET (FP) PO SCH (14:44)
[2017-12-06] MEDS: METOPROLOL TARTRATE 25 MG TABLET (FP) PO SCH ×2 (14:44→21:19)
--- NOTE | 2017-12-06 15:19 | PN ---
Progress Note, Physician Chief Complaint: c/o diarrhea tele negative History of Present Illness: 42 year-old man with a PMHx of HTN, asthma, and ESRD on HD admitted with SOB and near syncope. No LOC. No chest pain. +chronic LE edema. Patient transferred to ICU for rapid atrial flutter. Tele shows persistent narrow complex tachycardia at 110 -120 BPM: sinus tachycardia vs atrial flutter. Repeat 12 lead ECG requested. -Echocardiogram 12/03/2016 showed Moderate concentric LVH with normal LV systolic function. But mod dilated RV and severe pulm htn with severe MR and TR. Severe MAC and possible vegetation on mitral valve. - Current Medication List Current Medications: Active Medications Acetaminophen (Tylenol -) 325 mg PO Q6H PRN PRN Reason: FEVER OR PAIN Last Admin: 12/04/17 21:08 Dose: 325 mg Calcium Acetate (Phoslo -) 667 mg PO TIDCM [facility] Last Admin: 12/06/17 12:21 Dose: 667 mg Emollient Ointment (Aquaphor -) 1 applic TP BID [facility] Last Admin: 12/06/17 14:43 Dose: 1 applic Epoetin Adilson (Procrit -) 6,000 unit IVPUSH ONCE ONE Stop: 12/04/17 19:50 Gabapentin (Neurontin -) 100 mg PO TID [facility] Last Admin: 12/06/17 14:44 Dose: 100 mg Heparin Sodium (Porcine) (Heparin -) 1,000 unit IVPUSH PRN PRN PRN Reason: Heparin Heparin Sodium (Porcine) (Heparin -) 5,000 unit IVPUSH PRN PRN PRN Reason: Heparin Last Admin: 12/05/17 23:30 Dose: 5,000 unit HEPARIN SOD,PORK IN 0.45% NACL (Heparin-1/2ns 25,000 Units/500) 25,000 units in 500 mls @ 20 mls/hr IVPB TITR [facility]; 1,000 UNITS/HR PRN Reason: Protocol Last Admin: 12/06/17 12:17 Dose: 1,300 units/hr, 26 mls/hr Metoprolol Tartrate (Lopressor -) 50 mg PO BID [facility] Last Admin: 12/06/17 14:44 Dose: 50 mg Ondansetron HCl (Zofran Odt -) 4 mg SL Q6H PRN PRN Reason: NAUSEA Last Admin: 12/05/17 11:50 Dose: 4 mg Oxycodone HCl (Roxicodone -) 5 mg PO Q6H PRN PRN Reason: PAIN Polyethylene Glycol (Miralax (For Daily Use) -) 17 gm PO DAILY [facility] Last Admin: 12/06/17 10:59 Dose: Not Given Senna (Senna -) 1 tab PO HS [facility] Last Admin: 12/05/17 21:12 Dose: 1 tab Sertraline HCl (Zoloft -) 50 mg PO DAILY [facility] Last Admin: 12/06/17 14:44 Dose: 50 mg Sevelamer Carbonate (Renvela -) 800 mg PO TIDCM [facility] Last Admin: 12/06/17 12:21 Dose: 800 mg Warfarin Sodium (Coumadin -) 5 mg PO DAILY@1800 [facility] Last Admin: 12/05/17 18:48 Dose: 5 mg - Objective Vital Signs: Vital Signs Temperature 99.7 F H 12/06/17 14:26 Pulse Rate 59 L 12/06/17 14:26 Respiratory Rate 20 12/06/17 14:26 Blood Pressure 122/69 12/06/17 14:26 O2 Sat by Pulse Oximetry (%) 95 12/06/17 09:00 Constitutional: Yes: No Distress Eyes: Yes: Conjunctiva Clear HENT: Yes: Normocephalic Neck: Yes: Supple, Trachea Midline Cardiovascular: Yes: Regular Rate and Rhythm Respiratory: Yes: Regular, CTA Bilaterally Gastrointestinal: Yes: Normal Bowel Sounds Extremities: Yes: WNL Edema: No Labs: CBC, BMP 12/04/17 05:10 12/06/17 08:41 INR, PTT INR 2.24 (0.82-1.09) H D 12/06/17 08:41 Problem List - Problems (1) Atrial flutter Assessment/Plan: 1) Sinus tachycardia vs atrial flutter with rapid VR: Last ECG with sinus tach. VR control: Increase metoprolol to 75 mg BID. Continue AC with coumadin. INR > 2.0, stop heparin. 2) Acute diastolic CHF with severe MR and pulmonary HTN. Continue volume removal with dialysis. Repeat echo after euvolemic. VR control will be helpful for CHF management. 3) Possible mitral valve vegetation and severe MR. Will consider ELIER to further evaluate mitral valve Code(s): I48.92 - UNSPECIFIED ATRIAL FLUTTER Qualifiers: Atrial flutter type: unspecified Qualified Code(s): I48.92 - Unspecified atrial flutter
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
[2017-12-06] MEDS: WARFARIN NA 5 MG TABLET (UD) PO SCH (17:42)
[2017-12-06] MEDS: SENNOSIDES 8.6MG TABLET (FP) PO SCH ×2 (21:19→21:29)
[2017-12-06] MEDS ORDERED: diphenhydrAMINE HCL 25 MG CAPSULE (FP) PO ONE (23:50)
[2017-12-07] MEDS: GABAPENTIN 100 MG CAPSULE (FP) PO SCH ×3 (05:56→22:09)
[2017-12-07] MEDS: CALCIUM ACETATE 667 MG CAPSULE (FP) PO SCH ×3 (08:38→17:30)
[2017-12-07] MEDS: SEVELAMER CARBONATE 800 MG TAB (FP) PO SCH ×3 (08:39→17:30)
[2017-12-07 08:47] LABS: INR 2.11 (0.82-1.09); PROTHROMBIN TIME (PATIENT) 23.8 SEC (9.98-11.88)
--- NOTE | 2017-12-07 09:11 | PN ---
Physical Exam: SUBJECTIVE: Patient seen and examined. He reports he is feeling better than before, however still very SOB with exertion. OBJECTIVE: Vital Signs Period Temp Pulse Resp BP Sys/Mcintyre Pulse Ox Last 24 Hr 97.9 F-99.7 F 51-119 18-20 80-144/38-111 95-97 PE Neuro: alert, awake, cn 2-12 intact Pulm: course breath sounds, rhonchi + intermittent cough CV: s1 s2 tachycardia Abd: s nt nd + bs Ext: trace edema, b/l feet dressing cdi Laboratory Results - last 24 hr 12/06/17 12/06/17 12/06/17 08:41 08:41 08:41 PT with INR 25.30 H INR 2.24 H D PTT (Actin FS) 51.3 H D Sodium 128 L Potassium 6.6 H* D Chloride 89 L Carbon Dioxide 15 L D Anion Gap 24 H BUN 64 H D Creatinine 8.3 H* Random Glucose 79 D Calcium 8.9 Creatine Kinase Troponin I 12/06/17 12/06/17 12/07/17 08:41 16:05 07:20 PT with INR 23.80 H INR 2.11 H PTT (Actin FS) Sodium Potassium Chloride Carbon Dioxide Anion Gap BUN Creatinine Random Glucose Calcium Creatine Kinase 138 123 Troponin I 0.08 H 0.08 H Active Medications Generic Name Dose Route Start Last Admin Trade Name Freq PRN Reason Stop Dose Admin Acetaminophen 325 mg 12/04/17 12:41 12/04/17 21:08 Tylenol - PO 325 mg Q6H PRN Administration FEVER OR PAIN Calcium Acetate 667 mg 12/05/17 08:00 12/07/17 08:38 Phoslo - PO 667 mg TIDCM [facility] Administration Emollient Ointment 1 applic 12/04/17 11:00 12/06/17 21:29 Aquaphor - TP 1 applic BID [facility] Administration Epoetin Adilson 6,000 unit 12/04/17 19:49 Procrit - IVPUSH 12/04/17 19:50 ONCE ONE Gabapentin 100 mg 12/04/17 22:00 12/07/17 05:56 Neurontin - PO 100 mg TID [facility] Administration Metoprolol Tartrate 75 mg 12/07/17 08:37 Lopressor - PO BID [facility] Ondansetron HCl 4 mg 12/04/17 16:24 12/05/17 11:50 Zofran Odt - SL 4 mg Q6H PRN Administration NAUSEA Oxycodone HCl 5 mg 12/04/17 19:49 Roxicodone - PO Q6H PRN PAIN Polyethylene Glycol 17 gm 12/05/17 16:45 12/06/17 10:59 Miralax (For Daily Use) - PO Not Given DAILY [facility] Senna 1 tab 12/05/17 22:00 12/06/17 21:29 Senna - PO Not Given HS [facility] Sertraline HCl 50 mg 12/05/17 10:00 12/06/17 14:44 Zoloft - PO 50 mg DAILY [facility] Administration Sevelamer Carbonate 800 mg 12/05/17 08:00 12/07/17 08:39 Renvela - PO 800 mg TIDCM [facility] Administration Warfarin Sodium 5 mg 12/05/17 18:00 12/06/17 17:42 Coumadin - PO 5 mg DAILY@1800 [facility] Administration Imaging: - ECHO with nl lvef but mod dilated RV and severe pulm htn with severe MR. ? calcification vs vegetation on mitral valve. Assessment: 42 year old male with PMHx of HTN, ESRD (on HD, non-compliant), asthma, admitted with worsening shortness of breath and pre-syncope. Plan: 1. Chest pain - Resolved today - Trops flat 2. Shortness of breath, volume overload, emergent HD 1/3 - Improved - Repeat ECHO once reached dry weight 3. ESRD - Next HD per renal service, Wednesday 4. Tachycardia, Atrial tachycardia vs a flutter rapid VR - INR therapeutic, heparin gtt discontinued - Dose coumadin 5mg, INR goal 2-3 - Increase metoprolol 75mg BID - Cards to decide for ELIER evaluation 5. Acute on chronic anemia - Blood with HD 6. B/l feet ulcers - Dressing changes daily 7. Generalized pain - Gabapentin - Oxycodon PRN 8. Constipation - Resolved Visit type - Emergency Visit Emergency Visit: Yes ED Registration Date: 12/01/17 Care time: The patient presented to the Emergency Department on the above date and was hospitalized for further evaluation of their emergent condition. - New Patient This patient is new to me today: No - Critical Care Critical Care patient: No
[2017-12-07] MEDS: METOPROLOL TARTRATE 25 MG TABLET (FP) PO SCH ×2 (09:27→22:09)
[2017-12-07] MEDS: SERTRALINE HCL 50 MG TABLET (FP) PO SCH (09:27)
[2017-12-07] MEDS: MINERAL OIL/PET HY-PHL TOPICAL OINTMENT 454 GM JAR TP SCH ×2 (09:28→22:09)
[2017-12-07] MEDS: POLYETHYLENE GLYCOL 3350 119 GM BTL PO SCH (09:30)
[2017-12-07] MEDS ORDERED: ALBUTEROL SO4 0.083% IH SOL 2.5 MG/3 ML VIAL.NEB. NEB PRN (11:29)
--- NOTE | 2017-12-07 11:29 | PN ---
Progress Note, Physician History of Present Illness: PULMONARY ALERT,C/O SOB,-CP. - Current Medication List Current Medications: Active Medications Acetaminophen (Tylenol -) 325 mg PO Q6H PRN PRN Reason: FEVER OR PAIN Last Admin: 12/04/17 21:08 Dose: 325 mg Calcium Acetate (Phoslo -) 667 mg PO TIDCM [facility] Last Admin: 12/07/17 11:18 Dose: 667 mg Emollient Ointment (Aquaphor -) 1 applic TP BID [facility] Last Admin: 12/07/17 09:28 Dose: 1 applic Epoetin Adilson (Procrit -) 6,000 unit IVPUSH ONCE ONE Stop: 12/04/17 19:50 Gabapentin (Neurontin -) 100 mg PO TID [facility] Last Admin: 12/07/17 05:56 Dose: 100 mg Metoprolol Tartrate (Lopressor -) 75 mg PO BID [facility] Last Admin: 12/07/17 09:27 Dose: 75 mg Ondansetron HCl (Zofran Odt -) 4 mg SL Q6H PRN PRN Reason: NAUSEA Last Admin: 12/05/17 11:50 Dose: 4 mg Oxycodone HCl (Roxicodone -) 5 mg PO Q6H PRN PRN Reason: PAIN Polyethylene Glycol (Miralax (For Daily Use) -) 17 gm PO DAILY [facility] Last Admin: 12/07/17 09:30 Dose: Not Given Senna (Senna -) 1 tab PO HS [facility] Last Admin: 12/06/17 21:29 Dose: Not Given Sertraline HCl (Zoloft -) 50 mg PO DAILY [facility] Last Admin: 12/07/17 09:27 Dose: 50 mg Sevelamer Carbonate (Renvela -) 800 mg PO TIDCM [facility] Last Admin: 12/07/17 11:18 Dose: 800 mg Warfarin Sodium (Coumadin -) 5 mg PO DAILY@1800 [facility] Last Admin: 12/06/17 17:42 Dose: 5 mg - Objective Vital Signs: Vital Signs Temperature 98.3 F 12/07/17 08:52 Pulse Rate 120 H 12/07/17 08:52 Respiratory Rate 20 12/07/17 08:52 Blood Pressure 162/92 12/07/17 08:52 O2 Sat by Pulse Oximetry (%) 98 12/07/17 08:52 Constitutional: Yes: Well Nourished, Calm Eyes: Yes: WNL HENT: Yes: WNL Neck: Yes: WNL Cardiovascular: Yes: Regular Rate and Rhythm, S1, S2 Respiratory: Yes: Rhonchi (SCATTERED RHONCHI) Gastrointestinal: Yes: Normal Bowel Sounds, Soft Extremities: Yes: WNL Edema: Yes Labs: CBC, BMP INR, PTT INR 2.11 (0.82-1.09) H 12/07/17 07:20 Problem List - Problems (1) ESRD (end stage renal disease) Code(s): N18.6 - END STAGE RENAL DISEASE (2) Fluid overload Code(s): E87.70 - FLUID OVERLOAD, UNSPECIFIED Qualifiers: Hypervolemia type: unspecified Qualified Code(s): E87.70 - Fluid overload, unspecified (3) Shortness of breath Code(s): R06.02 - SHORTNESS OF BREATH (4) HTN (hypertension) Code(s): I10 - ESSENTIAL (PRIMARY) HYPERTENSION (5) Hyperkalemia Code(s): E87.5 - HYPERKALEMIA Assessment/Plan ASSESSMENT AND PLAN: Volume Overload ESRD on HD Noncompliance HTN Pulmonary Htn Asthma - HD per renal - monitor lytes - monitor CXR - monitor H/H - DVT prophylaxis - O2 - inhaled bronchodilators DR CARDENAS
--- NOTE | 2017-12-07 12:14 | PN ---
Progress Note, Physician Chief Complaint: still with sob. No chest pain. tele negative History of Present Illness: 42 year-old man with a PMHx of HTN, asthma, and ESRD on HD admitted with SOB and near syncope. No LOC. No chest pain. +chronic LE edema. Patient transferred to ICU for rapid atrial flutter. Tele shows persistent narrow complex tachycardia at 110 -120 BPM: sinus tachycardia vs atrial flutter. Repeat 12 lead ECG requested. -Echocardiogram 12/03/2016 showed Moderate concentric LVH with normal LV systolic function. But mod dilated RV and severe pulm htn with severe MR and TR. Severe MAC and possible vegetation on mitral valve. - Current Medication List Current Medications: Active Medications Acetaminophen (Tylenol -) 325 mg PO Q6H PRN PRN Reason: FEVER OR PAIN Last Admin: 12/04/17 21:08 Dose: 325 mg Albuterol Sulfate (Ventolin 0.083% Nebulizer Soln -) 1 amp NEB Q4H PRN PRN Reason: SHORT OF BREATH/WHEEZING Albuterol/Ipratropium (Duoneb -) 1 amp NEB RTID [facility] Calcium Acetate (Phoslo -) 667 mg PO TIDCM [facility] Last Admin: 12/07/17 11:18 Dose: 667 mg Emollient Ointment (Aquaphor -) 1 applic TP BID [facility] Last Admin: 12/07/17 09:28 Dose: 1 applic Epoetin Adilson (Procrit -) 6,000 unit IVPUSH ONCE ONE Stop: 12/04/17 19:50 Gabapentin (Neurontin -) 100 mg PO TID [facility] Last Admin: 12/07/17 05:56 Dose: 100 mg Metoprolol Tartrate (Lopressor -) 75 mg PO BID [facility] Last Admin: 12/07/17 09:27 Dose: 75 mg Ondansetron HCl (Zofran Odt -) 4 mg SL Q6H PRN PRN Reason: NAUSEA Last Admin: 12/05/17 11:50 Dose: 4 mg Oxycodone HCl (Roxicodone -) 5 mg PO Q6H PRN PRN Reason: PAIN Polyethylene Glycol (Miralax (For Daily Use) -) 17 gm PO DAILY [facility] Last Admin: 12/07/17 09:30 Dose: Not Given Senna (Senna -) 1 tab PO HS [facility] Last Admin: 12/06/17 21:29 Dose: Not Given Sertraline HCl (Zoloft -) 50 mg PO DAILY [facility] Last Admin: 12/07/17 09:27 Dose: 50 mg Sevelamer Carbonate (Renvela -) 800 mg PO TIDCM [facility] Last Admin: 12/07/17 11:18 Dose: 800 mg Warfarin Sodium (Coumadin -) 5 mg PO DAILY@1800 [facility] Last Admin: 12/06/17 17:42 Dose: 5 mg - Objective Vital Signs: Vital Signs Temperature 98.3 F 12/07/17 08:52 Pulse Rate 120 H 12/07/17 08:52 Respiratory Rate 20 12/07/17 08:52 Blood Pressure 162/92 12/07/17 08:52 O2 Sat by Pulse Oximetry (%) 98 12/07/17 08:52 Constitutional: Yes: Well Nourished, No Distress Eyes: Yes: Conjunctiva Clear, EOM Intact HENT: Yes: Atraumatic, Normocephalic Neck: Yes: Trachea Midline Cardiovascular: Yes: Regular Rate and Rhythm Respiratory: Yes: Regular, CTA Bilaterally Gastrointestinal: Yes: Normal Bowel Sounds Extremities: Yes: WNL Edema: No Peripheral Pulses WNL: Yes Labs: CBC, BMP 12/04/17 05:10 12/06/17 08:41 INR, PTT INR 2.11 (0.82-1.09) H 12/07/17 07:20 Problem List - Problems (1) Atrial flutter Assessment/Plan: 1) Sinus tachycardia vs atrial flutter with rapid VR: Last ECG with sinus tach. VR control: Increase metoprolol to 75 mg BID. Continue AC with coumadin. 2) Acute diastolic CHF with severe MR and pulmonary HTN. Continue volume removal with dialysis. Repeat echo after euvolemic. VR control will be helpful for CHF management. 3) Possible mitral valve vegetation and severe MR. Will consider ELIER to further evaluate mitral valve Code(s): I48.92 - UNSPECIFIED ATRIAL FLUTTER Qualifiers: Atrial flutter type: unspecified Qualified Code(s): I48.92 - Unspecified atrial flutter
[2017-12-07] MEDS: ALBUTEROL SO4 2.5/IPRATROPIUM 0.5 INH SOL 3 ML VIAL.NEB. NEB SCH ×2 (14:14→20:42)
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
[2017-12-07] MEDS: ACETAMINOPHEN 325 MG TABLET (FP) PO PRN (16:53)
[2017-12-07] MEDS: WARFARIN NA 5 MG TABLET (UD) PO SCH (17:30)
[2017-12-07] MEDS: ONDANSETRON 4 MG TABLET PO PRN (19:57)
[2017-12-07] MEDS: SENNOSIDES 8.6MG TABLET (FP) PO SCH (22:09)
[2017-12-08] MEDS: ACETAMINOPHEN 325 MG TABLET (FP) PO PRN ×2 (02:48→13:55)
[2017-12-08] MEDS: GABAPENTIN 100 MG CAPSULE (FP) PO SCH ×3 (06:13→21:57)
[2017-12-08] MEDS: SEVELAMER CARBONATE 800 MG TAB (FP) PO SCH ×3 (08:00→17:59)
[2017-12-08] MEDS: ALBUTEROL SO4 2.5/IPRATROPIUM 0.5 INH SOL 3 ML VIAL.NEB. NEB SCH ×3 (08:00→22:25)
[2017-12-08] MEDS: CALCIUM ACETATE 667 MG CAPSULE (FP) PO SCH ×3 (08:00→17:59)
[2017-12-08 08:33] LABS: HEMATOCRIT 31.8 % (35.4-49); HEMOGLOBIN 9.5 GM/dL (11.7-16.9); MCH 25.3 pg (25.7-33.7); MEAN CELL VOLUME 84.4 fl (80-96); MEAN PLT VOLUME 7.7 fl (7.5-11.1); PLATELET COUNT 287 K/MM3 (134-434); RBC 3.76 M/mm3 (4.00-5.60); RDW 23.6 % (11.9-15.9); WHITE BLOOD COUNT 9.9 K/mm3 (4.0-10.0)
[2017-12-08 09:08] LABS: CHLORIDE 90 mmol/L (98-107); POTASSIUM 5.1 mmol/L (3.5-5.1); SODIUM 133 mmol/L (136-145)
[2017-12-08 09:23] LABS: ANION GAP 20 (8-16); BLOOD UREA NITROGEN 58 mg/dL (7-18); CALCIUM 9.1 mg/dL (8.5-10.1); CO2 23 mmol/L (21-32); GLUCOSE,RANDOM 95 mg/dL (74-106); PHOSPHOROUS 6.6 mg/dL (2.5-4.9)
[2017-12-08 10:17] LABS: CREATININE 7.9 mg/dL (0.7-1.3)
--- NOTE | 2017-12-08 12:00 | PN ---
Progress Note, Physician History of Present Illness: PULMONARY SLEEPING ON HD,-DISTRESS - Current Medication List Current Medications: Active Medications Acetaminophen (Tylenol -) 325 mg PO Q6H PRN PRN Reason: FEVER OR PAIN Last Admin: 12/08/17 02:48 Dose: 325 mg Albuterol Sulfate (Ventolin 0.083% Nebulizer Soln -) 1 amp NEB Q4H PRN PRN Reason: SHORT OF BREATH/WHEEZING Albuterol/Ipratropium (Duoneb -) 1 amp NEB RTID [facility] Last Admin: 12/08/17 08:00 Dose: 1 amp Calcium Acetate (Phoslo -) 667 mg PO TIDCM [facility] Last Admin: 12/07/17 17:30 Dose: 667 mg Emollient Ointment (Aquaphor -) 1 applic TP BID [facility] Last Admin: 12/07/17 22:09 Dose: 1 applic Epoetin Adilson (Procrit -) 6,000 unit IVPUSH ONCE ONE Stop: 12/04/17 19:50 Epoetin Adilson (Epogen -) unit IVPUSH ONCE ONE Stop: 12/08/17 15:37 Gabapentin (Neurontin -) 100 mg PO TID [facility] Last Admin: 12/08/17 06:13 Dose: 100 mg Metoprolol Tartrate (Lopressor -) 75 mg PO BID [facility] Last Admin: 12/07/17 22:09 Dose: 75 mg Ondansetron HCl (Zofran -) 4 mg PO Q6H PRN PRN Reason: NAUSEA Last Admin: 12/07/17 19:57 Dose: 4 mg Oxycodone HCl (Roxicodone -) 5 mg PO Q6H PRN PRN Reason: PAIN Polyethylene Glycol (Miralax (For Daily Use) -) 17 gm PO DAILY [facility] Last Admin: 12/07/17 09:30 Dose: Not Given Senna (Senna -) 1 tab PO HS [facility] Last Admin: 12/07/17 22:09 Dose: 1 tab Sertraline HCl (Zoloft -) 50 mg PO DAILY [facility] Last Admin: 12/07/17 09:27 Dose: 50 mg Sevelamer Carbonate (Renvela -) 800 mg PO TIDCM [facility] Last Admin: 12/07/17 17:30 Dose: 800 mg - Objective Vital Signs: Vital Signs Temperature 8.8 F L 12/08/17 06:55 Pulse Rate 88 12/08/17 11:35 Respiratory Rate 18 12/08/17 11:35 Blood Pressure 121/78 12/08/17 11:35 O2 Sat by Pulse Oximetry (%) 94 L 12/08/17 09:00 Constitutional: Yes: Well Nourished, Other (SLEEPING) Eyes: Yes: WNL HENT: Yes: WNL Neck: Yes: WNL Cardiovascular: Yes: Regular Rate and Rhythm, S1, S2 Respiratory: Yes: Rhonchi Gastrointestinal: Yes: Normal Bowel Sounds, Soft Extremities: Yes: WNL Edema: Yes Labs: CBC, BMP 12/08/17 05:42 12/08/17 05:42 INR, PTT INR 2.11 (0.82-1.09) H 12/07/17 07:20 Problem List - Problems (1) ESRD (end stage renal disease) Code(s): N18.6 - END STAGE RENAL DISEASE (2) Fluid overload Code(s): E87.70 - FLUID OVERLOAD, UNSPECIFIED Qualifiers: Hypervolemia type: unspecified Qualified Code(s): E87.70 - Fluid overload, unspecified (3) Shortness of breath Code(s): R06.02 - SHORTNESS OF BREATH (4) HTN (hypertension) Code(s): I10 - ESSENTIAL (PRIMARY) HYPERTENSION (5) Hyperkalemia Code(s): E87.5 - HYPERKALEMIA Assessment/Plan ASSESSMENT AND PLAN: Volume Overload ESRD on HD Noncompliance HTN Pulmonary Htn Asthma - HD per renal - monitor lytes - CXR AM - monitor H/H - DVT prophylaxis - O2 - inhaled bronchodilators DR CARDENAS
[2017-12-08] MEDS: SERTRALINE HCL 50 MG TABLET (FP) PO SCH (12:24)
[2017-12-08] MEDS: MINERAL OIL/PET HY-PHL TOPICAL OINTMENT 454 GM JAR TP SCH ×2 (12:25→21:57)
[2017-12-08] MEDS: METOPROLOL TARTRATE 25 MG TABLET (FP) PO SCH ×2 (12:25→21:57)
[2017-12-08] MEDS: POLYETHYLENE GLYCOL 3350 119 GM BTL PO SCH (12:29)
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
[2017-12-08] MEDS ORDERED: EPOETIN ALFA 10,000 UNIT/1 ML VIAL SQ ONE (13:00)
--- NOTE | 2017-12-08 14:42 | PN ---
Physical Exam: SUBJECTIVE: Patient seen and examined. Tolerated HD, c/o itching after HD, benadryl given. OBJECTIVE: Vital Signs Period Temp Pulse Resp BP Sys/Mcintyre Pulse Ox Last 24 Hr 8.8 F-98.6 F 60-117 18-189 103-148/65-94 94-98 PE Neuro: sleeping arousable, nad Pulm: basilar rhonchi CV: s1 s2 tachycardia Abd: s nt nd + bs Ext: trace edema, b/l feet dressing cdi Laboratory Results - last 24 hr 12/08/17 12/08/17 12/08/17 05:42 05:42 05:42 WBC 9.9 D RBC 3.76 L Hgb 9.5 L Hct 31.8 L D MCV 84.4 MCH 25.3 L MCHC 30.0 L RDW 23.6 H D Plt Count 287 MPV 7.7 Sodium 133 L Potassium 5.1 D Chloride 90 L Carbon Dioxide 23 D Anion Gap 20 H BUN 58 H Creatinine 7.9 H* Random Glucose 95 D Calcium 9.1 Phosphorus 6.6 H Cancelled Blood Type Antibody Screen Active Medications Generic Name Dose Route Start Last Admin Trade Name Freq PRN Reason Stop Dose Admin Acetaminophen 325 mg 12/04/17 12:41 12/08/17 13:55 Tylenol - PO 325 mg Q6H PRN Administration FEVER OR PAIN Albuterol Sulfate 1 amp 12/07/17 11:29 Ventolin 0.083% Nebulizer Soln - NEB Q4H PRN SHORT OF BREATH/WHEEZING Albuterol/Ipratropium 1 amp 12/07/17 14:00 12/08/17 08:00 Duoneb - NEB 1 amp RTID [facility] Administration Calcium Acetate 667 mg 12/05/17 08:00 12/08/17 12:27 Phoslo - PO 667 mg TIDCM [facility] Administration Emollient Ointment 1 applic 12/04/17 11:00 12/08/17 12:25 Aquaphor - TP 1 applic BID [facility] Administration Epoetin Adilson 6,000 unit 12/04/17 19:49 Procrit - IVPUSH 12/04/17 19:50 ONCE ONE Gabapentin 100 mg 12/04/17 22:00 12/08/17 13:55 Neurontin - PO 100 mg TID [facility] Administration Metoprolol Tartrate 75 mg 12/07/17 08:37 12/08/17 12:25 Lopressor - PO 75 mg BID [facility] Administration Ondansetron HCl 4 mg 12/07/17 19:43 12/07/17 19:57 Zofran - PO 4 mg Q6H PRN Administration NAUSEA Oxycodone HCl 5 mg 12/04/17 19:49 Roxicodone - PO Q6H PRN PAIN Polyethylene Glycol 17 gm 12/05/17 16:45 12/08/17 12:29 Miralax (For Daily Use) - PO Not Given DAILY [facility] Senna 1 tab 12/05/17 22:00 12/07/17 22:09 Senna - PO 1 tab HS [facility] Administration Sertraline HCl 50 mg 12/05/17 10:00 12/08/17 12:24 Zoloft - PO 50 mg DAILY [facility] Administration Sevelamer Carbonate 800 mg 12/05/17 08:00 12/08/17 12:27 Renvela - PO 800 mg TIDCM [facility] Administration Imaging: - ECHO with nl lvef but mod dilated RV and severe pulm htn with severe MR. ? calcification vs vegetation on mitral valve. Assessment: 42 year old male with PMHx of HTN, ESRD (on HD, non-compliant), asthma, admitted with worsening shortness of breath and pre-syncope. Plan: 1. Chest pain - Resolved - Trops flat 2. Shortness of breath, volume overload, emergent HD 1/3 - CXR improved, L base with congestive changes - Additional HD tomorrow 3. ESRD - Next HD tomorrow 4. Tachycardia, Atrial tachycardia vs a flutter rapid VR - Telemetry with sinus tach - Stop coumadin - Start Eliquis 5mg BID Wednesday morning - Maintain metoprolol 75mg BID - Discussed above with cardiology 5. Acute on chronic anemia - Blood with HD 6. B/l feet ulcers - Dressing changes daily 7. Generalized pain - Gabapentin - Oxycodon PRN 8. Constipation - Resolved 9. Gross body puritis - Benadryl prn Visit type - Emergency Visit Emergency Visit: Yes ED Registration Date: 12/01/17 Care time: The patient presented to the Emergency Department on the above date and was hospitalized for further evaluation of their emergent condition. - New Patient This patient is new to me today: No - Critical Care Critical Care patient: No
--- NOTE | 2017-12-08 15:11 | PN ---
Progress Note, Physician - Current Medication List Current Medications: Active Medications Acetaminophen (Tylenol -) 325 mg PO Q6H PRN PRN Reason: FEVER OR PAIN Last Admin: 12/08/17 13:55 Dose: 325 mg Albuterol Sulfate (Ventolin 0.083% Nebulizer Soln -) 1 amp NEB Q4H PRN PRN Reason: SHORT OF BREATH/WHEEZING Albuterol/Ipratropium (Duoneb -) 1 amp NEB RTID [facility] Last Admin: 12/08/17 08:00 Dose: 1 amp Calcium Acetate (Phoslo -) 667 mg PO TIDCM [facility] Last Admin: 12/08/17 12:27 Dose: 667 mg Emollient Ointment (Aquaphor -) 1 applic TP BID [facility] Last Admin: 12/08/17 12:25 Dose: 1 applic Epoetin Adilson (Procrit -) 6,000 unit IVPUSH ONCE ONE Stop: 12/04/17 19:50 Gabapentin (Neurontin -) 100 mg PO TID [facility] Last Admin: 12/08/17 13:55 Dose: 100 mg Metoprolol Tartrate (Lopressor -) 75 mg PO BID [facility] Last Admin: 12/08/17 12:25 Dose: 75 mg Ondansetron HCl (Zofran -) 4 mg PO Q6H PRN PRN Reason: NAUSEA Last Admin: 12/07/17 19:57 Dose: 4 mg Oxycodone HCl (Roxicodone -) 5 mg PO Q6H PRN PRN Reason: PAIN Polyethylene Glycol (Miralax (For Daily Use) -) 17 gm PO DAILY [facility] Last Admin: 12/08/17 12:29 Dose: Not Given Senna (Senna -) 1 tab PO HS [facility] Last Admin: 12/07/17 22:09 Dose: 1 tab Sertraline HCl (Zoloft -) 50 mg PO DAILY [facility] Last Admin: 12/08/17 12:24 Dose: 50 mg Sevelamer Carbonate (Renvela -) 800 mg PO TIDCM [facility] Last Admin: 12/08/17 12:27 Dose: 800 mg - Objective Vital Signs: Vital Signs Temperature 8.8 F L 12/08/17 06:55 Pulse Rate 88 12/08/17 11:35 Respiratory Rate 18 12/08/17 11:35 Blood Pressure 121/78 12/08/17 11:35 O2 Sat by Pulse Oximetry (%) 94 L 12/08/17 09:00 Labs: CBC, BMP 12/08/17 05:42 12/08/17 05:42 INR, PTT INR 2.11 (0.82-1.09) H 12/07/17 07:20 Problem List - Problems (1) Atrial flutter Assessment/Plan: 1) Sinus tachycardia vs atrial flutter with rapid VR: Last ECG with sinus tach. VR control: Increase metoprolol to 75 mg BID. Continue AC with Eliquis 5 mg bid. He is a poor coumadin candidate due to his lack of follow up. 2) Acute diastolic CHF with severe MR and pulmonary HTN. Continue volume removal with dialysis. Repeat echo after euvolemic. VR control will be helpful for CHF management. 3) Possible mitral valve vegetation and severe MR. I have reviewed the echo images. This is likely severe annular calcification rather than endocarditis. He is not a candidate at this time for intervention on his mitral valve, given his poor status and lack of access to follow up. I would not pursue further testing at this time. will see as needed. Code(s): I48.92 - UNSPECIFIED ATRIAL FLUTTER Qualifiers: Atrial flutter type: unspecified Qualified Code(s): I48.92 - Unspecified atrial flutter
[2017-12-08] MEDS ORDERED: EPOETIN ALFA 2,000 UNIT/1 ML VIAL IVPUSH ONE (15:36)
[2017-12-08] MEDS ORDERED: EPOETIN ALFA 3,000 UNIT/1 ML ML IVPUSH ONE (17:00)
[2017-12-08] MEDS: SENNOSIDES 8.6MG TABLET (FP) PO SCH (21:57)
[2017-12-09] MEDS: ACETAMINOPHEN 325 MG TABLET (FP) PO PRN (06:07)
[2017-12-09] MEDS: GABAPENTIN 100 MG CAPSULE (FP) PO SCH ×3 (06:07→22:37)
[2017-12-09] MEDS: ALBUTEROL SO4 2.5/IPRATROPIUM 0.5 INH SOL 3 ML VIAL.NEB. NEB SCH ×3 (08:00→20:45)
[2017-12-09 08:42] LABS: ANION GAP 14 (8-16); BLOOD UREA NITROGEN 44 mg/dL (7-18); CALCIUM 8.4 mg/dL (8.5-10.1); CHLORIDE 95 mmol/L (98-107); CO2 23 mmol/L (21-32); GLUCOSE,RANDOM 116 mg/dL (74-106); POTASSIUM 4.3 mmol/L (3.5-5.1); SODIUM 132 mmol/L (136-145)
[2017-12-09 08:44] LABS: CREATININE 6.5 mg/dL (0.7-1.3)
[2017-12-09] MEDS: SEVELAMER CARBONATE 800 MG TAB (FP) PO SCH ×3 (09:00→19:06)
[2017-12-09] MEDS: CALCIUM ACETATE 667 MG CAPSULE (FP) PO SCH ×3 (09:00→19:05)
[2017-12-09] MEDS: APIXABAN 5 MG TABLET PO SCH ×2 (11:39→22:37)
[2017-12-09] MEDS: SERTRALINE HCL 50 MG TABLET (FP) PO SCH (11:39)
[2017-12-09] MEDS: METOPROLOL TARTRATE 25 MG TABLET (FP) PO SCH (11:39)
[2017-12-09] MEDS: POLYETHYLENE GLYCOL 3350 119 GM BTL PO SCH (11:40)
[2017-12-09] MEDS: MINERAL OIL/PET HY-PHL TOPICAL OINTMENT 454 GM JAR TP SCH ×2 (11:40→22:37)
[2017-12-09] MEDS ORDERED: EPOETIN ALFA 2,000 UNIT/1 ML VIAL IVPUSH ONE (12:48)
[2017-12-09 13:27] LABS: HEMOGLOBIN 9.5 GM/dL (11.7-16.9); MCH 25.6 pg (25.7-33.7); MCHC 29.7 g/dl (32.0-35.9); MEAN PLT VOLUME 7.8 fl (7.5-11.1); PLATELET COUNT 225 K/MM3 (134-434); RBC 3.72 M/mm3 (4.00-5.60); RDW 24.5 % (11.9-15.9); WHITE BLOOD COUNT 9.7 K/mm3 (4.0-10.0)
[2017-12-09] MEDS ORDERED: METOPROLOL TARTRATE 25 MG TABLET (FP) PO ONE (13:35)
--- NOTE | 2017-12-09 13:37 | PN ---
Physical Exam: SUBJECTIVE: Patient seen and examined s/p dialysis. OBJECTIVE: s/p dialysis today Toprol increased to 100mg bid prior to discharge for better rate control Patient states he will follow up with cardiology as an outpatient, stressed importance Vital Signs Period Temp Pulse Resp BP Sys/Mcintyre Pulse Ox Last 24 Hr 98.8 F-99.8 F 98-118 18-20 101-121/65-80 94 GENERAL: The patient is awake, alert, and fully oriented, in no acute distress. HEAD: Normal with no signs of trauma. EYES: PERRL, extraocular movements intact, sclera anicteric, conjunctiva clear. No ptosis. ENT: Ears normal, nares patent, oropharynx clear without exudates, moist mucous membranes. NECK: Trachea midline, full range of motion, supple. LUNGS: breath sounds with scattered rhonchi, tolerating room air HEART: sinus tachycardia 110-117 on case monitor, increased Toprol 100mg BID ABDOMEN: Soft, nontender, nondistended, normoactive bowel sounds, no guarding, no rebound, no hepatosplenomegaly, no masses. EXTREMITIES: multiple chronicl lower ext. wounds, wound care dressings daily NEUROLOGICAL: Normal speech, gait steady PSYCH: Normal mood, normal affect. Laboratory Results - last 24 hr 12/09/17 12/09/17 06:45 06:45 WBC 9.7 RBC 3.72 L Hgb 9.5 L Hct 32.0 L MCV 86.0 MCH 25.6 L MCHC 29.7 L RDW 24.5 H Plt Count 225 D MPV 7.8 Sodium 132 L Potassium 4.3 Chloride 95 L Carbon Dioxide 23 Anion Gap 14 BUN 44 H D Creatinine 6.5 H Random Glucose 116 H D Calcium 8.4 L Active Medications Generic Name Dose Route Start Last Admin Trade Name Freq PRN Reason Stop Dose Admin Acetaminophen 325 mg 12/04/17 12:41 12/09/17 06:07 Tylenol - PO 325 mg Q6H PRN Administration FEVER OR PAIN Albuterol Sulfate 1 amp 12/07/17 11:29 Ventolin 0.083% Nebulizer Soln - NEB Q4H PRN SHORT OF BREATH/WHEEZING Albuterol/Ipratropium 1 amp 12/07/17 14:00 12/09/17 08:00 Duoneb - NEB 1 amp RTID [facility] Administration Apixaban 5 mg 12/09/17 11:45 12/09/17 11:39 Eliquis - PO 5 mg BID [facility] Administration Calcium Acetate 667 mg 12/05/17 08:00 12/09/17 11:40 Phoslo - PO 667 mg TIDCM [facility] Administration Emollient Ointment 1 applic 12/04/17 11:00 12/09/17 11:40 Aquaphor - TP 1 applic BID [facility] Administration Gabapentin 100 mg 12/04/17 22:00 12/09/17 06:07 Neurontin - PO 100 mg TID [facility] Administration Metoprolol Tartrate 75 mg 12/07/17 08:37 12/09/17 11:39 Lopressor - PO 75 mg BID [facility] Administration Metoprolol Tartrate 25 mg 12/09/17 13:35 Lopressor - PO 12/09/17 13:36 ONCE ONE Ondansetron HCl 4 mg 12/07/17 19:43 12/07/17 19:57 Zofran - PO 4 mg Q6H PRN Administration NAUSEA Oxycodone HCl 5 mg 12/04/17 19:49 Roxicodone - PO Q6H PRN PAIN Polyethylene Glycol 17 gm 12/05/17 16:45 12/09/17 11:40 Miralax (For Daily Use) - PO Not Given DAILY [facility] Senna 1 tab 12/05/17 22:00 12/08/17 21:57 Senna - PO 1 tab HS [facility] Administration Sertraline HCl 50 mg 12/05/17 10:00 12/09/17 11:39 Zoloft - PO 50 mg DAILY [facility] Administration Sevelamer Carbonate 800 mg 12/05/17 08:00 12/09/17 11:40 Renvela - PO 800 mg TIDCM [facility] Administration ASSESSMENT/PLAN: Patient is a 42 year old male with a past medical history of hypertension, ESRD (goes to [facility]-pt states he is compliant) and asthma. He was admitted on 12/01/2017 with worsening shortness of breath and pre-syncope. Imaging: ECHO with normal lvef but mod dilated RV and severe pulm htn with severe MR, calcification vs vegetation on mitral valve. Cardiology: Chest pain, resolved Denies chest pain or shortness of breath Trops were flat trending Pulmonary: Shortness of breath, resolved S/P dialysis today, breathing improved, tolerating room air Renal: ESRD, chronic Dialysis today, tolerated well Resume dialysis at [facility] Cardiology: Tachycardia, Atrial tachycardia vs a flutter rapid VR ST on case monitor @ 117 Started on Eliquis 5mg BID Metropol 100mg BID for rate control Discussed with cardiology () Hematology Acute on chronic anemia Monitor with dialysis Skin: Bilateral lower ext chronic skin ulcers Change dressing daily May benefit from [facility] outpt follow up for wound care Disposition: discharge home with close cardiology follow. Continue outpatient dialysis. full code. Visit type - Emergency Visit Emergency Visit: Yes ED Registration Date: 12/01/17 Care time: The patient presented to the Emergency Department on the above date and was hospitalized for further evaluation of their emergent condition. - New Patient This patient is new to me today: Yes Date on this admission: 12/09/17 - Critical Care Critical Care patient: No - Discharge Referral Referred to [facility] Yes Physician Referral: Nicholas Gloria MD ([facility])
--- NOTE | 2017-12-09 15:31 | DS ---
Physical Exam: SUBJECTIVE: Patient seen and examined OBJECTIVE: Vital Signs Period Temp Pulse Resp BP Sys/Mcintyre Pulse Ox Last 24 Hr 98.7 F-99.0 F 98-117 18-20 101-123/65-80 94 PHYSICAL EXAM GENERAL: The patient is awake, alert, and fully oriented, in no acute distress. HEAD: Normal with no signs of trauma. EYES: PERRL, extraocular movements intact, sclera anicteric, conjunctiva clear. No ptosis. ENT: Ears normal, nares patent, oropharynx clear without exudates, moist mucous membranes. NECK: Trachea midline, full range of motion, supple. LUNGS: breath sounds with scattered rhonchi, tolerating room air HEART: sinus tachycardia 110-117 on automatic spinning lathe setter, increased Toprol 100mg BID ABDOMEN: Soft, nontender, nondistended, normoactive bowel sounds, no guarding, no rebound, no hepatosplenomegaly, no masses. EXTREMITIES: multiple chronicl lower ext. wounds, wound care dressings daily NEUROLOGICAL: Normal speech, gait steady PSYCH: Normal mood, normal affect. LABS Laboratory Results - last 24 hr 12/09/17 12/09/17 06:45 06:45 WBC 9.7 RBC 3.72 L Hgb 9.5 L Hct 32.0 L MCV 86.0 MCH 25.6 L MCHC 29.7 L RDW 24.5 H Plt Count 225 D MPV 7.8 Sodium 132 L Potassium 4.3 Chloride 95 L Carbon Dioxide 23 Anion Gap 14 BUN 44 H D Creatinine 6.5 H Random Glucose 116 H D Calcium 8.4 L HOSPITAL COURSE: Date of Admission:12/01/17 Date of Discharge: 12/09/17 ASSESSMENT/PLAN: Patient is a 42 year old male with a past medical history of hypertension, ESRD (goes to [facility]-pt states he is compliant) and asthma. He was admitted on 12/01/2017 with worsening shortness of breath and pre-syncope. Imaging: ECHO with normal lvef but mod dilated RV and severe pulm htn with severe MR, calcification vs vegetation on mitral valve. Cardiology: Chest pain, resolved Denies chest pain or shortness of breath Trops were flat trending Pulmonary: Shortness of breath, resolved S/P dialysis today, breathing improved, tolerating room air Renal: ESRD, chronic Dialysis today, tolerated well Resume dialysis at [facility] Cardiology: Tachycardia, Atrial tachycardia vs a flutter rapid VR ST on automatic spinning lathe setter @ 117 Started on Eliquis 5mg BID Metropol 100mg BID for rate control Discussed with cardiology () Hematology Acute on chronic anemia Monitor with dialysis Skin: Bilateral lower ext chronic skin ulcers Change dressing daily May benefit from VNS outpt follow up for wound care Disposition: discharge home with close cardiology follow. Continue outpatient dialysis. full code. Minutes to complete discharge: 60 Discharge Summary Reason For Visit: SOB,ESRD,HYPERVOLEMIA Current Active Problems Atrial flutter (Acute) ESRD (end stage renal disease) (Acute) Fluid overload (Acute) Hypotension (Acute) Shortness of breath (Acute) Condition: Stable - Instructions Diet, Activity, Other Instructions: Mr. Wilcox: Please note that there has been a change to your home medications: Stop your home medications of : Norvasc, Carvedilol and Minoxidil. These medications have been replaced with the following (has been called into your pharmacy): Metoprolol 100mg twice per day: at 8am and 8pm Eliquis 5mg twice per day: at 8am and 8pm Please continue your home dialysis as scheduled. Please see the aerobics teacher (referral in your packed) so that they can continue to monitor you on these two new medications. Please call me with any questions that you may have. I am available from 7am to 7pm today, tomorrow and Wednesday.. [facility] [phone] Referrals: Afshin Mitchell MD [Staff Physician] - 1 Week Nicholas Estevez MD [Staff Physician] - 1 Week Disposition: HOME - Home Medications Comprehensive Discharge Medication List: Ambulatory Orders Oxycodone HCl/Acetaminophen [Percocet 5-325 mg Tablet] 1 tab PO BID PRN #10 tablet 01/28/16 Sertraline HCl [Zoloft] 50 mg PO DAILY 01/28/16 Calcium Acetate [Phoslo -] 667 mg PO TIDCM 06/30/16 Sevelamer HCl [Renagel] 800 mg PO TID 06/30/16 Gabapentin 100 mg PO TID 08/16/16 Acetaminophen [Tylenol .Regular Strength -] 325 mg PO Q6H PRN tablet 12/09/17 Albuterol 0.083% Nebulizer Jesi [Ventolin 0.083% Nebulizer Soln -] 1 amp NEB Q4H PRN #1 amp 12/09/17 Apixaban [Eliquis -] 5 mg PO BID #60 tablet 12/09/17 Gabapentin [Neurontin -] 100 mg PO TID #0 capsule 12/09/17 Metoprolol Tartrate 100 mg PO BID #60 tablet 12/09/17 Sennosides [Senna -] 1 tab PO HS tablet 12/09/17 This patient is new to me today: Yes Date on this admission: 12/09/17 Emergency Visit: Yes ED Registration Date: 12/01/17 Care time: The patient presented to the Emergency Department on the above date and was hospitalized for further evaluation of their emergent condition. Critical Care patient: No - Discharge Referral Referred to [facility] Yes Physician Referral: Nicholas Gloria MD ([facility])
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
[2017-12-09] MEDS: METOPROLOL TARTRATE 50 MG TABLET (FP) PO SCH (19:05)
[2017-12-09] MEDS ORDERED: diphenhydrAMINE HCL 25 MG CAPSULE (FP) PO ONE (21:26)
[2017-12-09] MEDS: SENNOSIDES 8.6MG TABLET (FP) PO SCH (22:37)
--- NOTE | 2017-12-10 03:34 | FALL ---
Fall Exam - Event Witnessed fall: No Location of Fall: Patient Room Fall from: Bed - Pre-Fall Fall Risk: At Risk Mental Status: Alert, Oriented, Cooperative Current Medications: Current Medications Generic Name Dose Route Start Last Admin Trade Name Freq PRN Reason Stop Dose Admin Acetaminophen 325 mg 12/04/17 12:41 12/09/17 06:07 Tylenol - PO 325 mg Q6H PRN Administration FEVER OR PAIN Albuterol Sulfate 1 amp 12/07/17 11:29 Ventolin 0.083% Nebulizer Soln - NEB Q4H PRN SHORT OF BREATH/WHEEZING Albuterol/Ipratropium 1 amp 12/07/17 14:00 12/09/17 20:45 Duoneb - NEB 1 amp RTID [facility] Administration Apixaban 5 mg 12/09/17 11:45 12/09/17 22:37 Eliquis - PO 5 mg BID [facility] Administration Calcium Acetate 667 mg 12/05/17 08:00 12/09/17 19:05 Phoslo - PO 667 mg TIDCM [facility] Administration Emollient Ointment 1 applic 12/04/17 11:00 12/09/17 22:37 Aquaphor - TP 1 applic BID [facility] Administration Gabapentin 100 mg 12/04/17 22:00 12/09/17 22:37 Neurontin - PO 100 mg TID [facility] Administration Metoprolol Tartrate 100 mg 12/09/17 18:00 12/09/17 19:05 Lopressor - PO 100 mg BID [facility] Administration Ondansetron HCl 4 mg 12/07/17 19:43 12/07/17 19:57 Zofran - PO 4 mg Q6H PRN Administration NAUSEA Oxycodone HCl 5 mg 12/04/17 19:49 Roxicodone - PO Q6H PRN PAIN Polyethylene Glycol 17 gm 12/05/17 16:45 12/09/17 11:40 Miralax (For Daily Use) - PO Not Given DAILY [facility] Senna 1 tab 12/05/17 22:00 12/09/17 22:37 Senna - PO 1 tab HS [facility] Administration Sertraline HCl 50 mg 12/05/17 10:00 12/09/17 11:39 Zoloft - PO 50 mg DAILY [facility] Administration Sevelamer Carbonate 800 mg 12/05/17 08:00 12/09/17 19:06 Renvela - PO 800 mg TIDCM [facility] Administration - Post-Fall Patient Outcome: Pain Only (L- hip pain) Exam Findings: AAOx3, HEENT: Normal Cephalic, Atraumatic, PERRL, +EOMIs, Nares patent, Mucous Membranes moist. Cervical: Supple, Midline, no Lymphadenopathy, CTAB, RRR, S1,S2, no MRG. Abdomen: soft, non-tender, BS present, Pelvis/Hip: L- hip tenderness, No bony deformity. Extremities: + AV Fistula LUE, +thrill/ bruit. No edemea to lower extremites. DTP +2 Treatment: Analgesia Vital Signs: Vital Signs Temperature 98.1 F 12/10/17 03:00 Pulse Rate 112 H 12/10/17 03:00 Respiratory Rate 20 12/10/17 03:00 Blood Pressure 115/70 12/10/17 03:00 O2 Sat by Pulse Oximetry (%) 96 12/09/17 21:00 LOC Post-Fall: Unchanged, Awake, Alert, Oriented Identify factors for HIGH RISK for Head Injury: Pt on anticoagulant (Patient admantly refused Head CT and L- Hip xray r/o fx risks and benefits discussed with patient)
[2017-12-10] MEDS: GABAPENTIN 100 MG CAPSULE (FP) PO SCH ×2 (06:26→14:12)
[2017-12-10] MEDS ORDERED: diphenhydrAMINE HCL 25 MG CAPSULE (FP) PO ONE ×2 (08:15→13:46)
[2017-12-10] MEDS: ALBUTEROL SO4 2.5/IPRATROPIUM 0.5 INH SOL 3 ML VIAL.NEB. NEB SCH ×2 (08:20→14:19)
[2017-12-10] MEDS ORDERED: PT OWN MED DRAWER 7, Y5N ONE (08:58)
[2017-12-10] MEDS: METOPROLOL TARTRATE 50 MG TABLET (FP) PO SCH (08:59)
[2017-12-10] MEDS: SERTRALINE HCL 50 MG TABLET (FP) PO SCH (08:59)
[2017-12-10] MEDS: POLYETHYLENE GLYCOL 3350 119 GM BTL PO SCH (08:59)
[2017-12-10] MEDS: APIXABAN 5 MG TABLET PO SCH (08:59)
[2017-12-10] MEDS: MINERAL OIL/PET HY-PHL TOPICAL OINTMENT 454 GM JAR TP SCH (09:00)
[2017-12-10] MEDS: CALCIUM ACETATE 667 MG CAPSULE (FP) PO SCH ×3 (09:01→18:37)
[2017-12-10] MEDS: SEVELAMER CARBONATE 800 MG TAB (FP) PO SCH ×3 (09:01→18:37)
--- NOTE | 2017-12-10 09:25 | HOSP ---
Physical Examination Vital Signs: Vital Signs Temperature 98.1 F 12/10/17 03:36 Pulse Rate 113 H 12/10/17 06:56 Respiratory Rate 20 12/10/17 06:56 Blood Pressure 123/44 12/10/17 06:56 O2 Sat by Pulse Oximetry (%) 96 12/09/17 21:00 Labs: CBC, BMP 12/09/17 06:45 12/09/17 06:45 Hospitalist Encounter Assessment: ASSESSMENT/PLAN: Patient is a 42 year old male with a past medical history of hypertension, ESRD (goes to [facility]-pt states he is compliant) and asthma. He was admitted on 12/01/2017 with worsening shortness of breath and pre-syncope. Patient was discharged on 12/16/2017 but did not go home as he was concerned over needing additional dialysis. I assured patient that I would reach out to Dr. Rodriguez and address his concerns. I also spoke to patient about adhering to his renal diet. He has food from [employer] and large bottle of Sprite in his room. He was being followed by nutrition during hospitalization who is offering guidance and support on making better food choices. Patient encouraged to adhere to a renal diet. I Spoke to Dr. Rodriguez via telephone who will come to see patient today for possible additional HD. Patient is to follow up with his HD after discharge. Patient also reportedly fell out of his bed this morning. Patient was encouraged by night GENERAL OPHTHALMOLOGIST to have a CT scan of his head and of his hips s/p fall, patient refused. I encouraged patient to re-consider imaging of his head since he is on a blood thinner. I explained that on a blood thinner, patients are at risk of developing spontaneous bleeding. Patient adamantly refused despite my encouragement and recommendations that he comply with the CT head and imaging of his hips. Imaging: ECHO with normal lvef but mod dilated RV and severe pulm htn with severe MR, calcification vs vegetation on mitral valve. Cardiology: Chest pain, resolved Denies chest pain or shortness of breath Trops were flat trending No further chest pain, comfortable at rest Pulmonary: Shortness of breath, resolved Patient to get additional dialysis today as per Dr. Rodriguez Encourged pt to adhere to outpatient dialysis on d/c His pre and post were within normal limits Ambulated with a steady gait with respiratory therapy Renal: ESRD, chronic Dialysis today as per Dr. Rordiguez Resume dialysis at [facility] on discharge SW contacted SW and spoke to center Cardiology: Tachycardia, Atrial tachycardia vs a flutter rapid VR ST on child monitor @ 112 Started on Eliquis 5mg BID Metropol 100mg BID for rate control Discussed yesterday with cardiology () Patient encouraged to make follow up appointment with cardiology for continued follow up Hematology Acute on chronic anemia Monitor with dialysis Skin: Bilateral lower ext chronic skin ulcers Change dressing daily May benefit from VNS outpt follow up for wound care Wound care instructions in d/c packet Disposition: discharge home with close cardiology follow. Continue outpatient dialysis. full code.
[2017-12-10] MEDS: ONDANSETRON 4 MG TABLET PO PRN (10:39)
--- NOTE | 2017-12-10 11:41 | PN ---
Progress Note, Physician History of Present Illness: PULMONARY ALERT,OOB-CHAIR,LESS CONGESTED . - Current Medication List Current Medications: Active Medications Acetaminophen (Tylenol -) 325 mg PO Q6H PRN PRN Reason: FEVER OR PAIN Last Admin: 12/09/17 06:07 Dose: 325 mg Albuterol Sulfate (Ventolin 0.083% Nebulizer Soln -) 1 amp NEB Q4H PRN PRN Reason: SHORT OF BREATH/WHEEZING Last Admin: 12/10/17 04:57 Dose: 1 amp Albuterol/Ipratropium (Duoneb -) 1 amp NEB RTID [facility] Last Admin: 12/10/17 08:20 Dose: 1 amp Apixaban (Eliquis -) 5 mg PO BID [facility] Last Admin: 12/10/17 08:59 Dose: 5 mg Calcium Acetate (Phoslo -) 667 mg PO TIDCM [facility] Last Admin: 12/10/17 09:01 Dose: 667 mg Emollient Ointment (Aquaphor -) 1 applic TP BID [facility] Last Admin: 12/10/17 09:00 Dose: Not Given Gabapentin (Neurontin -) 100 mg PO TID [facility] Last Admin: 12/10/17 06:26 Dose: 100 mg Metoprolol Tartrate (Lopressor -) 100 mg PO BID [facility] Last Admin: 12/10/17 08:59 Dose: 100 mg Ondansetron HCl (Zofran -) 4 mg PO Q6H PRN PRN Reason: NAUSEA Last Admin: 12/10/17 10:39 Dose: 4 mg Oxycodone HCl (Roxicodone -) 5 mg PO Q6H PRN PRN Reason: PAIN Polyethylene Glycol (Miralax (For Daily Use) -) 17 gm PO DAILY [facility] Last Admin: 12/10/17 08:59 Dose: Not Given Senna (Senna -) 1 tab PO HS [facility] Last Admin: 12/09/17 22:37 Dose: 1 tab Sertraline HCl (Zoloft -) 50 mg PO DAILY [facility] Last Admin: 12/10/17 08:59 Dose: 50 mg Sevelamer Carbonate (Renvela -) 800 mg PO TIDCM [facility] Last Admin: 12/10/17 09:01 Dose: 800 mg - Objective Vital Signs: Vital Signs Temperature 98.1 F 12/10/17 03:36 Pulse Rate 105 H 12/10/17 10:25 Respiratory Rate 20 12/10/17 06:56 Blood Pressure 123/44 12/10/17 06:56 O2 Sat by Pulse Oximetry (%) 96 12/10/17 10:25 Constitutional: Yes: Well Nourished, Calm Eyes: Yes: WNL HENT: Yes: WNL Neck: Yes: WNL Cardiovascular: Yes: Regular Rate and Rhythm, S1, S2 Respiratory: Yes: Rhonchi (SCATTERED RHONCHI) Gastrointestinal: Yes: Normal Bowel Sounds, Soft Extremities: Yes: WNL Edema: Yes Labs: CBC, BMP Problem List - Problems (1) ESRD (end stage renal disease) Code(s): N18.6 - END STAGE RENAL DISEASE (2) Fluid overload Code(s): E87.70 - FLUID OVERLOAD, UNSPECIFIED Qualifiers: Hypervolemia type: unspecified Qualified Code(s): E87.70 - Fluid overload, unspecified (3) Shortness of breath Code(s): R06.02 - SHORTNESS OF BREATH (4) HTN (hypertension) Code(s): I10 - ESSENTIAL (PRIMARY) HYPERTENSION (5) Hyperkalemia Code(s): E87.5 - HYPERKALEMIA Assessment/Plan ASSESSMENT AND PLAN: Volume Overload ESRD on HD Noncompliance HTN Pulmonary Htn Asthma - HD per renal - monitor lytes - monitor H/H - DVT prophylaxis - O2 - inhaled bronchodilators - f/u chest x-ray DR CARDENAS
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
[2017-12-10] MEDS ORDERED: EPOETIN ALFA 2,000 UNIT/1 ML VIAL IVPUSH ONE (12:31)
[2017-12-10] MEDS ORDERED: EPOETIN ALFA 4,000 UNIT, EPOETIN ALFA 3,000 UNIT IVPUSH ONE (14:30)
[2017-12-10 16:06] LABS: HEMATOCRIT 30.3 % (35.4-49); HEMOGLOBIN 9.4 GM/dL (11.7-16.9); MCH 26.1 pg (25.7-33.7); MCHC 30.9 g/dl (32.0-35.9); MEAN CELL VOLUME 84.6 fl (80-96); MEAN PLT VOLUME 8.1 fl (7.5-11.1); PLATELET COUNT 187 K/MM3 (134-434); RBC 3.58 M/mm3 (4.00-5.60); RDW 24.9 % (11.9-15.9); WHITE BLOOD COUNT 6.7 K/mm3 (4.0-10.0)
[2017-12-10 16:38] LABS: ANION GAP 12 (8-16); BLOOD UREA NITROGEN 39 mg/dL (7-18); CALCIUM 8.2 mg/dL (8.5-10.1); CHLORIDE 95 mmol/L (98-107); CO2 26 mmol/L (21-32); CREATININE 6.2 mg/dL (0.7-1.3); GLUCOSE,RANDOM 163 mg/dL (74-106); POTASSIUM 4.5 mmol/L (3.5-5.1); SODIUM 133 mmol/L (136-145)
[2017-12-10 20:20] VITALS: BP 150/67; PULSE 113; TEMP 97.8
== END 2017-12-10 21:23 | disposition home or self-care (01) | DRG 194 ==
LOC: JER 08:25 → JERBED 12:53 → JICU 14:45 → J2W 12-03 19:42 → J4W 12-05 19:45
PROVIDERS: ADMIT Internal Medicine; ATTEND Nurse Practitioner Family
PROC: 5A1D70Z Performance of Urinary Filtration, Intermittent, Less than 6 Hours Per Day (ICD-10-PCS; principal; 2017-12-01)
DX: I13.2 Hypertensive heart and chronic kidney disease with heart failure and with stage 5 chronic kidney disease, or end stage renal disease (principal); I50.31 Acute diastolic (congestive) heart failure; I95.9 Hypotension, unspecified; I27.20 Pulmonary hypertension, unspecified; N18.6 End stage renal disease; E87.5 Hyperkalemia; I48.92 Unspecified atrial flutter; J45.909 Unspecified asthma, uncomplicated; Z99.2 Dependence on renal dialysis; Z91.15 Patient's noncompliance with renal dialysis; Z87.891 Personal history of nicotine dependence; D64.9 Anemia, unspecified; L98.499 Non-pressure chronic ulcer of skin of other sites with unspecified severity; R00.0 Tachycardia, unspecified; I34.0 Nonrheumatic mitral (valve) insufficiency; K59.00 Constipation, unspecified; R07.9 Chest pain, unspecified
CPT/HCPCS: 36415; 36430; 71045-TC; 71250-TC; 80048; 80053; 82550; 82803; 83735; 83880; 84100; 84484; 85025; 85027; 85610; 85730; 86704; 86706; 86708; 86803; 86850; 86900; 86901; 86922; 87040; 87340; 93005; 93010; 93306-TC; 93970-TC; 94640; 94761; 97116-GP; 97161-GP; 99285-25; J0885; J1644; P9038; P9047; P9058